=== PATIENT | male | born 1935 | race Caucasian/White ===

== ENCOUNTER 2017-12-13 22:10 | Inpatient (IN) ==
[2017-12-13] MEDS ORDERED: MethylPREDNISolone Sod Succinate Inj 40 MG/ML Vial IV.PUSH ONE (22:38)
--- NOTE | 2017-12-13 22:44 | ED ---
HPI General Chief complaint: Respiratory Symptoms Stated complaint: Sob x1wk Time Seen by Provider: 12/13/17 22:31 Source: patient and family History of Present Illness HPI narrative: 82yo M with PMH of CHF, COPD here with c/o worsening sob today. Said he had fever here. Has midsternal chest pain that is sharp but mainly sob. Denies any n/v, abdominal pain, focal weakness or numbness. Said his bilateral leg swelling is actually better. Pt was admitted to [facility] 3 weeks ago and found to have mild CHF. Said he also had history of blood clot in his lung. Related Data Home Medications Medication Instructions Recorded Confirmed allopurinol 300 mg PO DAILY 12/08/17 12/13/17 amlodipine 5 mg PO DAILY 12/08/17 12/13/17 furosemide 40 mg PO DAILY 12/08/17 12/13/17 gabapentin 300 mg PO DAILY 12/08/17 12/13/17 hydrocodone-acetaminophen 1 tab PO Q4-6H PRN 12/08/17 12/13/17 meloxicam 15 mg PO DAILY 12/08/17 12/13/17 omeprazole 40 mg PO DAILY 12/08/17 12/13/17 oxybutynin chloride 5 mg PO BID PRN 12/08/17 12/13/17 trazodone 100 mg PO DAILY 12/08/17 12/13/17 triamterene-hydrochlorothiazid 1 cap PO DAILY 12/08/17 12/13/17 Allergies Allergy/AdvReac Type Severity Reaction Status Date / Time No Known Allergies Allergy Verified 12/07/17 22:28 Review of Systems ROS Unobtainable All other systems reviewed negative except as stated in HPI [facility] Social History Social History Substance History: No History of Abuse Second Hand Smoke Exposure: No Smoking Status: Never smoker How Often Do You Have a Drink Containing Alcohol: Never Immunization History Tetanus Immunization Year if Known: 2017 Exam Narrative Exam Narrative: GENERAL: 82yo M in moderate distress. SKIN: Focused skin assessment warm/dry. HEAD: Atraumatic. Normocephalic. EYES: Pupils equal and round. No scleral icterus. No injection or drainage. ENT: No nasal bleeding or discharge. Mucous membranes pink and moist. NECK: Trachea midline. No JVD. CARDIOVASCULAR: Regular rate and rhythm. No murmur appreciated. RESPIRATORY: + accessory muscle use. Decreased breath sounds bilateral lower lungs. No wheezing. GASTROINTESTINAL: Abdomen soft, non-tender, nondistended. MUSCULOSKELETAL: No obvious deformities. No clubbing. No cyanosis. +Bilateral lower extremity edema. NEUROLOGICAL: Awake and alert. No obvious cranial nerve deficits. Motor grossly within normal limits. Normal speech. PSYCHIATRIC: Appropriate mood and affect; insight and judgment normal. Course Initial Documented Vital Signs Temperature 102.4 F H 12/13/17 22:19 Pulse Rate 94 H 12/13/17 22:19 Respiratory Rate 20 12/13/17 22:19 Blood Pressure 147/69 H 12/13/17 22:19 Pulse Oximetry 94 L 12/13/17 22:19 Last Documented Vital Signs Temperature 99.5 F 12/14/17 00:37 Pulse Rate 113 H 12/14/17 02:38 Respiratory Rate 18 12/14/17 01:50 Blood Pressure 147/83 H 12/14/17 02:38 Pulse Oximetry 95 12/14/17 01:50 Critical Care Time Critical Care Time: Yes Total Critical Care Time: 45 Attestation: Aggregate critical care time was 45 minutes. Time to perform other separately billable procedures was not included in the critical care time. My time did not include minutes spent treating any other patients simultaneously or on activities that did not directly contribute to the patient's treatment. The services I provided to this patient were to treat and/or prevent clinically significant deterioration that could result in: cardiovascular collapse or . I provided critical care services requiring my management, as noted below: Chart data review, documentation time, medication orders and management, vital sign assessments/reviewing monitor data, ordering and reviewing lab tests, ordering and interpreting/reviewing x-rays and diagnostic studies, care of the patient and discussion of the patient with the admitting physicians. Medical Decision Making MDM Narrative Medical decision making narrative: 82yo M with fever and sob. Pt's temperature was elevated at 102.4F and tachycardic at 94bpm. O2 sat is 94% on RA. Pt has decreased breath sounds in bilateral lower lungs. No wheezing but has history of COPD so given empiric steroid and duonebs. Labs reviewed, leukocytosis at 13 ,000. 91.3% neutrophil. Troponin negative. Total bilirubin elevated at 1.9, likely dehydration. Lactic acid normal at 1.4. CXR showed moderate severity bilateral lower lung zone parenchymal opacity indicating atelectasis, consolidation or pulmonary edema. In the case of fever, leukocytosis, will cover with antibitoics. Discussed with Dr. Madera and accepted to her service. Differential Diagnosis Differential Diagnosis: Pneumonia vs. CHF exacerbation vs. COPD exacerbation vs. PE Lab Data Result diagrams: 12/13/17 22:55 12/13/17 22:55 Lab Results 12/13/17 12/13/17 12/13/17 Range/Units 22:55 22:55 22:55 CBC w Diff Auto diff final WBC 13.0 H (4.0-11.0) th/mm3 RBC 5.03 (4.50-5.90) mil/mm3 Hgb 14.6 (13.0-17.0) gm/dL Hct 45.8 (39.0-51.0) % MCV 91.1 (80.0-100.0) fL MCH 29.0 (27.0-34.0) pg MCHC 31.8 L (32.0-36.0) % RDW 13.5 (11.6-17.2) % Plt Count 165 (150-450) th/mm3 MPV 8.0 (7.0-11.0) fL Neut % (Auto) 91.3 H (16.0-70.0) % Lymph % (Auto) 3.6 L (9.0-44.0) % [place] % (Auto) 4.0 (0.0-8.0) % Eos % (Auto) 0.1 (0.0-4.0) % Baso % (Auto) 1.0 (0.0-2.0) % Neut # (Auto) 11.9 H (1.8-7.7) th/mm3 Lymph # (Auto) 0.5 L (1.0-4.8) th/mm3 [place] # (Auto) 0.5 (0.0-0.9) th/mm3 Eos # (Auto) 0.0 (0.0-0.4) th/mm3 Baso # (Auto) 0.1 (0.0-0.2) th/mm3 WBC Differential . Differential Comment . PT 10.4 (9.8-11.6) sec INR 1.0 Ratio APTT 24.2 L (24.3-30.1) sec Sodium 138 (136-145) meq/L Potassium 3.6 (3.5-5.1) meq/L Chloride 103 (98-107) meq/L Carbon Dioxide 28.0 (21.0-32.0) meq/L Anion Gap 7 (5-15) meq/L BUN 19 H (7-18) mg/dL Creatinine 0.99 (0.60-1.30) mg/dL Estimated GFR 72 L (>89) mL/min Random Glucose 124 H (74-106) mg/dL Lactic Acid (0.4-2.0) mmol/L Calcium 9.9 (8.5-10.1) mg/dL Magnesium 1.6 (1.5-2.5) mg/dL Total Bilirubin 1.9 H (0.2-1.0) mg/dL AST 21 (15-37) U/L ALT 24 (12-78) U/L Alkaline Phosphatase 111 (45-117) U/L Troponin I Less than 0.02 L (0.02-0.05) ng/mL B-Natriuretic Peptide (0-100) pg/mL Total Protein 7.3 (6.4-8.2) g/dL Albumin 3.7 (3.4-5.0) g/dL 12/13/17 12/13/17 Range/Units 22:55 22:55 CBC w Diff WBC (4.0-11.0) th/mm3 RBC (4.50-5.90) mil/mm3 Hgb (13.0-17.0) gm/dL Hct (39.0-51.0) % MCV (80.0-100.0) fL MCH (27.0-34.0) pg MCHC (32.0-36.0) % RDW (11.6-17.2) % Plt Count (150-450) th/mm3 MPV (7.0-11.0) fL Neut % (Auto) (16.0-70.0) % Lymph % (Auto) (9.0-44.0) % [place] % (Auto) (0.0-8.0) % Eos % (Auto) (0.0-4.0) % Baso % (Auto) (0.0-2.0) % Neut # (Auto) (1.8-7.7) th/mm3 Lymph # (Auto) (1.0-4.8) th/mm3 [place] # (Auto) (0.0-0.9) th/mm3 Eos # (Auto) (0.0-0.4) th/mm3 Baso # (Auto) (0.0-0.2) th/mm3 WBC Differential Differential Comment PT (9.8-11.6) sec INR Ratio APTT (24.3-30.1) sec Sodium (136-145) meq/L Potassium (3.5-5.1) meq/L Chloride (98-107) meq/L Carbon Dioxide (21.0-32.0) meq/L Anion Gap (5-15) meq/L BUN (7-18) mg/dL Creatinine (0.60-1.30) mg/dL Estimated GFR (>89) mL/min Random Glucose (74-106) mg/dL Lactic Acid 1.4 (0.4-2.0) mmol/L Calcium (8.5-10.1) mg/dL Magnesium (1.5-2.5) mg/dL Total Bilirubin (0.2-1.0) mg/dL AST (15-37) U/L ALT (12-78) U/L Alkaline Phosphatase (45-117) U/L Troponin I (0.02-0.05) ng/mL B-Natriuretic Peptide 35 (0-100) pg/mL Total Protein (6.4-8.2) g/dL Albumin (3.4-5.0) g/dL Imaging Data Radiologist's impression: ITS Impressions Chest X-Ray 12/13/17 22:39 CONCLUSION: Moderate severity bilateral lower lung zone parenchymal opacity indicating atelectasis, consolidation, or pulmonary edema. Small left pleural effusion. ECG Data EKG Prior to Arrival: No Attestation: I personally reviewed and interpreted this ECG as follows: Interpretation: NSR 98bpm. No significant ST elevation or depression. Discharge Plan Discharge Disposition Patient Disposition: 30 Still Patient Discharge Details Discharge Problem: Pneumonia Physicians Team ED Provider: Sammie Montana Primary Care Provider: Joe Palafox Attending Provider: Kellen Madera Discharge Interventions Interventions: Vital Signs Last Done: 12/14/17 00:37 Status ED Status: Admitted Patient
[2017-12-13 23:25] LABS: Baso # (Auto) 0.1 th/mm3 (0.0-0.2); Eos % (Auto) 0.1 % (0.0-4.0); Hematocrit 45.8 % (39.0-51.0); Hemoglobin 14.6 gm/dL (13.0-17.0); Lymph # (Auto) 0.5 th/mm3 (1.0-4.8); Lymph % (Auto) 3.6 % (9.0-44.0); Mean Corpuscular HGB Conc 31.8 % (32.0-36.0); Mean Corpuscular Volume 91.1 fL (80.0-100.0); Mono # (Auto) 0.5 th/mm3 (0.0-0.9); Neut # (Auto) 11.9 th/mm3 (1.8-7.7); Neut % (Auto) 91.3 % (16.0-70.0); Platelet Count 165 th/mm3 (150-450); Red Blood Count 5.03 mil/mm3 (4.50-5.90); Red Cell Distribution Width 13.5 % (11.6-17.2)
[2017-12-13] MEDS ORDERED: Acetaminophen 325 MG Tablet PO ONE (23:29)
[2017-12-13 23:36] LABS: Chloride 103 meq/L (98-107); Potassium 3.6 meq/L (3.5-5.1); Sodium 138 meq/L (136-145)
[2017-12-13 23:39] LABS: Activated Partial Thrombo Time 24.2 sec (24.3-30.1); Albumin 3.7 g/dL (3.4-5.0); Anion Gap 7 meq/L (5-15); Calcium 9.9 mg/dL (8.5-10.1); Prothrombin Time 10.4 sec (9.8-11.6)
[2017-12-13 23:40] LABS: Blood Urea Nitrogen 19 mg/dL (7-18); Glucose,Random 124 mg/dL (74-106); Magnesium 1.6 mg/dL (1.5-2.5)
[2017-12-13 23:42] LABS: Alanine Aminotransferase 24 U/L (12-78)
[2017-12-13 23:43] LABS: Aspartate Aminotransferase 21 U/L (15-37); Glomerular Filtration Rate 72 mL/min (>89)
[2017-12-13 23:44] LABS: Total Protein 7.3 g/dL (6.4-8.2)
[2017-12-13 23:45] LABS: Alkaline Phosphatase 111 U/L (45-117)
--- NOTE | 2017-12-13 23:59 | XR ---
EXAM DATE: 12/13/2017 11:22 PM EDT AGE/SEX: 82 years / Male INDICATIONS: Dyspnea. CLINICAL DATA: This is the patient's initial encounter. Patient reports that signs and symptoms have been present for 1 day and indicates a pain score of 7/10. MEDICAL/SURGICAL HISTORY: Congestive heart failure. Chronic obstructive pulmonary disease. Hy pertension. None. COMPARISON: No prior exams available for comparison. FINDINGS: Single AP view of the chest. Moderate severity patchy pulmonary opacity at the lung bases bilaterally . Small left pleural effusion. No evidence of pneumothorax. Cardiomediastinal silhouette within chapo l limits. Prominent glenohumeral joint arthrosis on the right. CONCLUSION: Moderate severity bilateral lower lung zone parenchymal opacity indicating atelectasis, consolidation , or pulmonary edema. Small left pleural effusion. Electronically signed by: Tai Millan MD 12/13/2017 11:58 PM EDT
[2017-12-14] MEDS ORDERED: Azithromycin 250 MG Tablet PO ONE (00:40)
[2017-12-14] MEDS ORDERED: Vancomycin Inj 1,000 MG in Sodium Chlor 0.9% Inj 250 ML IV.SIG SCH (00:59)
[2017-12-14] MEDS ORDERED: Sod Chloride 0.9% Inj 1,000 ML IV.CONT SCH (01:00)
[2017-12-14] MEDS ORDERED: Vancomycin Consult Pharmacy 1 EACH OTHER SCH (01:00)
[2017-12-14] MEDS ORDERED: Acetaminophen 325 MG Tablet PO PRN (01:00)
[2017-12-14] MEDS ORDERED: Bisacodyl 10 MG Supp RECTAL PRN (01:00)
[2017-12-14] MEDS: Heparin - SQ 10,000 UNITS/ML Vial SQ SCH ×3 (01:44→17:55)
[2017-12-14] MEDS: Piperacil/Tazo 4.5 GM Premix 4.5 GM/100 ML BAG IV.SIG SCH ×4 (03:30→20:49)
[2017-12-14] MEDS: Furosemide 40 MG Tablet PO SCH (09:40)
[2017-12-14] MEDS: Senna/Docusate Sodium 8.6/50 MG Tablet PO SCH ×2 (09:40→20:50)
[2017-12-14] MEDS: Gabapentin 300 MG Capsule PO SCH (09:40)
[2017-12-14] MEDS: amLODIPine 5 MG Tablet PO SCH (09:40)
--- NOTE | 2017-12-14 09:52 | P.HP ---
History of Present Illness Primary Care Physician: Joe Palafox Chief Complaint: General malaise History of Present Illness: 82-year-old male with known history of hypertension, history myocardial infarction, history of pulmonary emboli, recent hospitalization at [facility] who presented to the hospital because of general malaise and fever. Patient is alert and orientated to person, place, events. However does have some memory problems when he comes to date, time. It was indicated that patient was recently admitted to [facility] and was treated. Patient does not know why he was in the hospital. Patient was brought to [place] ER by his and was found to have 102.4 fever. GERD augmentation indicates that the patient presented with chest pain. Workup was performed and indicated signs of sepsis with fever, leukocytosis, pneumonia by chest x-ray. Patient was given empiric antibiotics include vancomycin and Zosyn and requested admission the hospital for further evaluation and management. Upon evaluating patient he states that he is doing quite well. He only had some general malaise. Patient states that he may have had some chest discomfort in the middle part of his chest without any radiation to neck, back, shoulder, arm. He cannot tell me what type of pain it was. There was not any lightheadedness, dizziness, diaphoresis. Mild cough without any production. Denies any chills, abdominal pain, nausea, vomiting, diarrhea. - Diagnosis (1) Sepsis (2) Pneumonia (3) Chest pain Inpatient Certification: I certify that the inpatient services were ordered in accordance with Medicare regulations governing the order. This includes certification that hospital inpatient services are reasonable and necessary and in the case of services not specified as inpatient-only under 42 CFR 419.22(n), that they are appropriately provided as inpatient services in accordance to with the 2-midnight benchmark under 43 CFR 412.3(e) Estimated Total Length of Stay (Days): 3 Plans for Post Hospital Care: Not yet determined Review of Systems All other systems reviewed negative except as stated in HPI Constitutional: Reports fatigue, Reports lack of energy, Reports malaise Cardiovascular: Reports chest pain Respiratory: Reports cough PMFSH - History History Provided By: Patient - Medical History Medical History: Medical History (Last Updated 12/14/17 @ 09:23 by MANJINDER Ricks) Benign prostatic hyperplasia Gastroesophageal reflux History of pulmonary embolism Osteoporosis Peripheral neuropathy Gout Heartburn Hypertension Myocardial infarction Neuropathy - Surgical History Surgical History: Surgical History (Last Updated 12/14/17 @ 09:22 by MANJINDER Ricks) History of laminectomy History of phacoemulsification of cataract of both eyes with intraocular lens implantation History of transurethral resection of prostate Status post cholecystectomy History of surgical removal of pilonidal cyst - Tobacco History Second Hand Smoke Exposure: No Tobacco Use In Past 30 Days: No Smoking Status: Never smoker - Alcohol History How Often Do You Have a Drink Containing Alcohol: Never - Substance Use History Substance History: No History of Abuse - Immunization History Tetanus Immunization: Unsure Tetanus Immunization Year if Known: 2017 Hx Influenza Vaccine This Season: Yes Medications and Allergies Active Medications: Active Medications Acetaminophen (Tylenol) 650 mg PO Q4H PRN PRN Reason: Temp > 100.4 Al Hydroxide/Mg Hydroxide (Milk Of Jonelle Licampos) 30 ml PO Q12H PRN PRN Reason: Mild Constipation Albuterol (Duoneb Neb (Prn)) 1 ampul NEB Q15M PRN PRN Reason: DYSPNEA Last Admin: 12/14/17 04:46 Dose: 1 ampul Albuterol (Duoneb Neb (Prn)) 1 ampul NEB Q4HR NEB PRN PRN Reason: SOB/Wheezing Allopurinol (Zyloprim) 300 mg PO DAILY [facility] Amlodipine Besylate (Norvasc) 5 mg PO DAILY [facility] Bisacodyl (Dulcolax Supp) 10 mg RECTAL DAILY PRN PRN Reason: SEVERE CONSITIPATION Furosemide (Lasix) 40 mg PO DAILY [facility] Gabapentin (Neurontin) 300 mg PO DAILY [facility] Heparin Sodium (Porcine) (Heparin Inj) 5,000 units SQ Q8H [facility] Last Admin: 12/14/17 01:44 Dose: 5,000 units Sodium Chloride (Ns Inj) 1,000 mls @ 100 mls/hr IV.CONT .Q10H [facility] Last Admin: 12/14/17 01:44 Dose: 100 mls/hr Pharmacy Profile Note (Vancomycin Consult Pharmacy) 0 mls @ 0 mls/hr OTHER UNSCH [facility] Vancomycin HCl 1,000 mg/ (Sodium Chloride) 250 mls @ 250 mls/hr IV.SIG Q12H [facility] Last Infusion: 12/14/17 02:44 Dose: Infused Piperacillin/Tazobactam/Dextrose (Zosyn 4.5 Gm Premix) 4.5 gm in 100 mls @ 200 mls/hr IV.SIG Q6H [facility] Last Infusion: 12/14/17 09:20 Dose: Infused Lactulose (Lactulose Liq) 30 ml PO DAILY PRN PRN Reason: SEVERE CONSITIPATION Non-Formulary Medication (Omeprazole [Omeprazole]) 40 mg PO DAILY [facility] Ondansetron HCl (Zofran Inj) 4 mg IV.PUSH Q6H PRN PRN Reason: NAUSEA OR VOMITING Senna/Docusate Sodium (Zo-Colace) 1 tab PO BID [facility] Sennosides (Senokot) 17.2 mg PO Q12H PRN PRN Reason: Moderate Constipation Trazodone HCl (Desyrel) 100 mg PO DAILY [facility] Allergies Allergy/AdvReac Type Severity Reaction Status Date / Time No Known Allergies Allergy Verified 12/07/17 22:28 Home Medications Medication Instructions Recorded Confirmed Type allopurinol 300 mg PO DAILY 12/08/17 12/13/17 History amlodipine 5 mg PO DAILY 12/08/17 12/13/17 History furosemide 40 mg PO DAILY 12/08/17 12/13/17 History gabapentin 300 mg PO DAILY 12/08/17 12/13/17 History hydrocodone-acetaminophen 1 tab PO Q4-6H PRN 12/08/17 12/13/17 History meloxicam 15 mg PO DAILY 12/08/17 12/13/17 History omeprazole 40 mg PO DAILY 12/08/17 12/13/17 History oxybutynin chloride 5 mg PO BID PRN 12/08/17 12/13/17 History trazodone 100 mg PO DAILY 12/08/17 12/13/17 History triamterene-hydrochlorothiazid 1 cap PO DAILY 12/08/17 12/13/17 History Exam Vital signs: Vital Signs 12/13/17 22:19 12/13/17 23:01 12/13/17 23:16 Temperature 102.4 F H Pulse Rate 94 H 102 H Respiratory Rate 20 20 Blood Pressure 147/69 H Pulse Oximetry 94 L 98 12/14/17 00:05 12/14/17 00:37 12/14/17 01:50 Temperature 99.5 F Pulse Rate 90 Respiratory Rate 18 Blood Pressure 124/68 Pulse Oximetry 95 95 12/14/17 02:38 12/14/17 04:48 12/14/17 04:51 Temperature Pulse Rate 113 H 85 Respiratory Rate 20 Blood Pressure 147/83 H Pulse Oximetry 96 12/14/17 05:59 12/14/17 07:23 Temperature 98 F Pulse Rate 96 H 82 Respiratory Rate 18 Blood Pressure 133/77 130/77 Pulse Oximetry 97 Intake & Output 12/13/17 12/14/17 12/14/17 18:59 06:59 18:59 Intake Total 350 / 350 100 / 100 Balance 350 / 350 100 / 100 Weight 94 kg Intake: IV 350 / 350 100 / 100 Zosyn 4.5 GM Premix 4.5 gm In 100 / 100 100 / 100 100 ml @ 200 mls/hr IV.SIG Q6H [facility] Rx#:[id number] Vancomycin Inj 1,000 MG In NS 250 / 250 Inj 250 ML @ 250 mls/hr IV.SIG Q12H [facility] Rx#:[id number] Narrative: GENERAL: Well-developed, well-nourished, in no acute distress. alert and orientated HEENT: Head is normocephalic without any lesions or masses noted. Facial features are symmetric. Eyes: Pupils equal round reactive to light. Extraocular muscles are intact. Conjunctivae were clear. Oropharyngeal: Pharynx without any erythema edema. Tongue is midline without deviation. Buccal mucosa is moist without any masses or lesions NECK: Supple without any masses. Trachea midline no deviation. No JVD, no bruits are appreciated CARDIAC: Regular rhythm, regular rate. S1/S2 are heard. No murmurs gallops or rubs. LUNGS: Clear to auscultation bilaterally. No wheeze, rhonchi or rales. No use of accessory muscles on inspiration or expiration. ABDOMEN: Soft, nontender. Nondistended. Bowel sounds heard in all 4 quadrants. No organomegaly or masses. Negative rebound, negative guarding EXTREMITIES: No edema, pulses are equal bilaterally. No cyanosis or clubbing NEUROLOGY: Mood and affect appear appropriate. Cranial nerves II through XII grossly intact. Muscle strength 5/5 in upper and lower extremities bilaterally. Deep tendon reflexes are 2+ in upper and lower extremities bilaterally. Results - Labs CBC & Chem 7: 12/13/17 22:55 12/13/17 22:55 Labs: Laboratory Results - last 24 hr 12/13/17 12/13/17 12/13/17 22:55 22:55 22:55 CBC w Diff Auto diff final WBC 13.0 H RBC 5.03 Hgb 14.6 Hct 45.8 MCV 91.1 MCH 29.0 MCHC 31.8 L RDW 13.5 Plt Count 165 MPV 8.0 Neut % (Auto) 91.3 H Lymph % (Auto) 3.6 L [place] % (Auto) 4.0 Eos % (Auto) 0.1 Baso % (Auto) 1.0 Neut # (Auto) 11.9 H Lymph # (Auto) 0.5 L [place] # (Auto) 0.5 Eos # (Auto) 0.0 Baso # (Auto) 0.1 WBC Differential . Differential Comment . PT 10.4 INR 1.0 APTT 24.2 L Sodium 138 Potassium 3.6 Chloride 103 Carbon Dioxide 28.0 Anion Gap 7 BUN 19 H Creatinine 0.99 Estimated GFR 72 L Random Glucose 124 H Lactic Acid Calcium 9.9 Magnesium 1.6 Total Bilirubin 1.9 H AST 21 ALT 24 Alkaline Phosphatase 111 Troponin I Less than 0.02 L B-Natriuretic Peptide Total Protein 7.3 Albumin 3.7 12/13/17 12/13/17 22:55 22:55 CBC w Diff WBC RBC Hgb Hct MCV MCH MCHC RDW Plt Count MPV Neut % (Auto) Lymph % (Auto) [place] % (Auto) Eos % (Auto) Baso % (Auto) Neut # (Auto) Lymph # (Auto) [place] # (Auto) Eos # (Auto) Baso # (Auto) WBC Differential Differential Comment PT INR APTT Sodium Potassium Chloride Carbon Dioxide Anion Gap BUN Creatinine Estimated GFR Random Glucose Lactic Acid 1.4 Calcium Magnesium Total Bilirubin AST ALT Alkaline Phosphatase Troponin I B-Natriuretic Peptide 35 Total Protein Albumin - Imaging Impressions Chest X-Ray 12/13/17 22:39 CONCLUSION: Moderate severity bilateral lower lung zone parenchymal opacity indicating atelectasis, consolidation, or pulmonary edema. Small left pleural effusion. Caprini VTE Risk Assessment Caprini VTE Risk Assessment: Moderate/High Risk (score >= 2) Caprini Risk Assessment Model: Point Value = 1 Point Value = 2 Point Value = 3 Point Value = 5 Age 41-60 Minor surgery BMI > 25 kg/m2 Swollen legs Varicose veins or History of unexplained or recurrent spontaneous Oral contraceptives or hormone replacement Sepsis (< 1 month) Serious lung disease, including pneumonia (< 1 month) Abnormal pulmonary function Acute myocardial infarction Congestive heart failure (< 1 month) History of inflammatory bowel disease Medical patient at bed rest Age 61-74 Arthroscopic surgery Major open surgery (> 45 min) Laparoscopic surgery (> 45 min) Malignancy Confined to bed (> 72 hours) Immobilizing plaster cast Central venous access Age >= 75 History of VTE Family history of VTE Factor V Leiden Prothrombin [id number] Lupus anticoagulant Anticardiolipin antibodies Elevated serum homocysteine Heparin-induced thrombocytopenia Other congenital or acquired thrombophilia Stroke (< 1 month) Elective arthroplasty Hip, pelvis, or leg fracture Acute spinal cord injury (< 1 month) Prophylaxis Regimen: Total Risk Factor Score Risk Level Prophylaxis Regimen 0-1 Low Early ambulation 2 Moderate Order ONE of the following: *Sequential Compression Device (SCD) *Heparin 5000 units SQ BID 3-4 Higher Order ONE of the following medications: *Heparin 5000 units SQ TID *Enoxaparin/Lovenox 40 mg SQ daily (WT < 150 kg, CrCl > 30 mL/min) *Enoxaparin/Lovenox 30 mg SQ daily (WT < 150 kg, CrCl > 10-29 mL/min) *Enoxaparin/Lovenox 30 mg SQ BID (WT < 150 kg, CrCl > 30 mL/min) AND/OR *Sequential Compression Device (SCD) 5 or more Highest Order ONE of the following medications: *Heparin 5000 units SQ TID (Preferred with Epidurals) *Enoxaparin/Lovenox 40 mg SQ daily (WT < 150 kg, CrCl > 30 mL/min) *Enoxaparin/Lovenox 30 mg SQ daily (WT < 150 kg, CrCl > 10-29 mL/min) *Enoxaparin/Lovenox 30 mg SQ BID (WT < 150 kg, CrCl > 30 mL/min) AND *Sequential Compression Device (SCD) Assessment and Plan - Assessment (1) Sepsis Code(s): A41.9 - Sepsis, unspecified organism Status: Acute Plan: -Patient met criteria on admission with febrile illness, leukocytosis, x-ray with findings of pneumonia and consolidations -Patient recent hospitalization, could represent hospital-acquired pneumonia -Continue vancomycin and Zosyn -Continue monitor blood cultures -Obtain urinalysis -Obtain sputum culture (2) Pneumonia Code(s): J18.9 - Pneumonia, unspecified organism Status: Acute Plan: -Patient recently hospitalized at [facility], likely hospital-acquired pneumonia -Continue on antibiotics for hospital-acquired pneumonia -Obtain sputum culture -Duo nebs as needed (3) Chest pain Code(s): R07.9 - Chest pain, unspecified Status: Acute Plan: -Patient does have increased risk factors secondary to age, hypertension, history of myocardial infarction -Continue to rule the patient out for acute coronary event with serial cardiac enzymes and serial EKGs -Continue monitor telemetry -Start aspirin, nitroglycerin as needed for chest pain -Continue oxygen -Patient does have history of pulmonary emboli, patient is not on any anticoagulation. Will need to obtain d-dimer -If d-dimer positive we will need to pursue pulmonary angiogram -BNP was normal - Plan DVT prevention -Subcutaneous heparin (2) Pneumonia Qualifiers: Pneumonia type: due to unspecified organism Laterality: bilateral
[2017-12-14 09:56] LABS: Baso % (Auto) 0.1 % (0.0-2.0); Eos % (Auto) 0.1 % (0.0-4.0); Hematocrit 43.5 % (39.0-51.0); Hemoglobin 14.1 gm/dL (13.0-17.0); Lymph # (Auto) 0.3 th/mm3 (1.0-4.8); Lymph % (Auto) 2.9 % (9.0-44.0); Mean Corpuscular HGB Conc 32.3 % (32.0-36.0); Mean Corpuscular Hemoglobin 29.6 pg (27.0-34.0); Mean Corpuscular Volume 91.5 fL (80.0-100.0); Mean Platelet Volume 7.6 fL (7.0-11.0); Mono # (Auto) 0.3 th/mm3 (0.0-0.9); Mono % (Auto) 2.2 % (0.0-8.0); Neut # (Auto) 11.1 th/mm3 (1.8-7.7); Neut % (Auto) 94.7 % (16.0-70.0); Platelet Count 172 th/mm3 (150-450); Red Blood Count 4.75 mil/mm3 (4.50-5.90); Red Cell Distribution Width 13.6 % (11.6-17.2); White Blood Count 11.7 th/mm3 (4.0-11.0)
[2017-12-14 10:32] LABS: Troponin I 0.02 ng/mL (0.02-0.05)
[2017-12-14] MEDS: traZODone 100 MG Tablet PO SCH (10:33)
[2017-12-14] MEDS: Allopurinol 300 MG Tablet PO SCH (10:33)
[2017-12-14] MEDS: Aspirin 325 MG Tablet PO SCH (10:33)
--- NOTE | 2017-12-14 11:20 | ECG ---
Date Performed: 12/13/2017 Time Performed: 22:47:35 PTAGE: 82 years EKG: Sinus rhythm WITH OCCASIONAL VENTRICULAR PREMATURE COMPLEXES WITH OCCASIONAL SUPRAVENTRICULAR PREMATURE COMPLEXES POSSIBLE INFERIOR MYOCARDIAL INFARCTION BORDERLINE ECG PREVIOUS TRACING : 11/27/2015 15.34 No significant change from previous tracing noted. DOCTOR: Marty Borjas Interpretating Date/Time 12/14/2017 11:19:55
--- NOTE | 2017-12-14 11:21 | ECG ---
Date Performed: 12/14/2017 Time Performed: 10:08:47 PTAGE: 82 years EKG: Sinus rhythm WITH FREQUENT SUPRAVENTRICULAR PREMATURE COMPLEXES ABNORMAL RHYTHM ECG PREVIOUS TRACING : 12/13/2017 22.47 No significant change from previous tracing noted. DOCTOR: Marty Borjas Interpretating Date/Time 12/14/2017 11:20:57
[2017-12-14] MEDS: Vancomycin Inj 1,250 MG in Sodium Chlor 0.9% Inj 250 ML IV.SIG SCH (12:15)
[2017-12-14 13:11] LABS: Bilirubin,Urine Negative (Negative); Clarity,Urine Clear (Clear); Color,Urine Yellow (Yellw/Straw); Glucose,Urine (UA) Negative (Negative); Leukocyte Esterase,Urine Negative (Negative); Nitrite,Urine Negative (Negative); Specific Gravity,Urine Less/Equal 1.005 (1.002-1.035); Urobilinogen,Urine 0.2 mg/dL (Less than 2)
[2017-12-14 13:14] LABS: Squamous Epithelial Cell,Urine 0-5 /hpf (0-5)
--- NOTE | 2017-12-14 13:33 | CT ---
EXAM DATE: 12/14/2017 1:22 PM EDT AGE/SEX: 82 years / Male INDICATIONS: Short of breath. History of pulmonary embolism. CLINICAL DATA: This is the patient's initial encounter. Patient reports that signs and symptoms have been present for 1 day and indicates a pain score of 0/10. MEDICAL/SURGICAL HISTORY: Gastroesophageal reflux disease. Hypertension. Pulmonary embolism. Myoca rdial infarct. Cholecystectomy. Laminectomy. RADIATION DOSE: 21.58 CTDI (mGy) COMPARISON: [facility], CT PULMONARY ANGIOGRAM, 11/27/2015. . TECHNIQUE: Volumetric scanning was performed using a multi-row detector CT scanner during bolus infu eli of 65 ml Omnipaque 350 (iohexol) nonionic water-soluble contrast as a single exam dose. The nishi a was post processed with a variety of visualization algorithms including full volume maximum intensi ty projection and sliding thin slab reformation. Using automated exposure control and adjustment of t he mA and/or kV according to patient size, radiation dose was kept as low as reasonably achievable to obtain optimal diagnostic quality images. DICOM format image data is available electronically for r eview and comparison. FINDINGS: Pulmonary Arteries: No filling defects are seen in the pulmonary arteries out to the subsegmental ve ssels. The left and right pulmonary arteries are normal in diameter. Lung: Bibasilar consolidation with air bronchograms. Effusion: None. Mediastinum: No evidence of mediastinal or hilar adenopathy. Coronary artery calcifications. Other: The axilla is unremarkable. Degenerative changes lumbar spine and both shoulders, greater on the right. CONCLUSION: 1. No evidence for pulmonary embolism. 2. Bibasilar consolidation 3. Coronary artery calcifications. Electronically signed by: Alfonzo Sher MD 12/14/2017 1:32 PM EDT
[2017-12-14 16:56] LABS: Troponin I 0.02 ng/mL (0.02-0.05)
[2017-12-15] MEDS: Vancomycin Inj 1,250 MG in Sodium Chlor 0.9% Inj 250 ML IV.SIG SCH (00:42)
[2017-12-15] MEDS: Heparin - SQ 10,000 UNITS/ML Vial SQ SCH ×2 (00:43→09:13)
[2017-12-15] MEDS: Piperacil/Tazo 4.5 GM Premix 4.5 GM/100 ML BAG IV.SIG SCH ×2 (00:43→10:01)
[2017-12-15 05:18] LABS: Baso % (Auto) 0.2 % (0.0-2.0); Eos % (Auto) 0.5 % (0.0-4.0); Hematocrit 39.5 % (39.0-51.0); Hemoglobin 13.4 gm/dL (13.0-17.0); Lymph # (Auto) 1.3 th/mm3 (1.0-4.8); Mean Corpuscular Hemoglobin 30.6 pg (27.0-34.0); Mono # (Auto) 0.6 th/mm3 (0.0-0.9); Mono % (Auto) 8.6 % (0.0-8.0); Neut # (Auto) 4.6 th/mm3 (1.8-7.7); Neut % (Auto) 70.7 % (16.0-70.0); Platelet Count 161 th/mm3 (150-450); Red Blood Count 4.39 mil/mm3 (4.50-5.90); Red Cell Distribution Width 14.3 % (11.6-17.2); White Blood Count 6.5 th/mm3 (4.0-11.0)
[2017-12-15 05:24] LABS: Potassium 3.4 meq/L (3.5-5.1)
[2017-12-15 05:28] LABS: Calcium 9.5 mg/dL (8.5-10.1); Carbon Dioxide 27.3 meq/L (21.0-32.0)
[2017-12-15] MEDS: Senna/Docusate Sodium 8.6/50 MG Tablet PO SCH (09:13)
[2017-12-15] MEDS: Aspirin 325 MG Tablet PO SCH (09:14)
[2017-12-15] MEDS: amLODIPine 5 MG Tablet PO SCH (09:14)
[2017-12-15] MEDS: Gabapentin 300 MG Capsule PO SCH (09:14)
[2017-12-15] MEDS: traZODone 100 MG Tablet PO SCH (09:14)
[2017-12-15] MEDS: Furosemide 40 MG Tablet PO SCH (09:14)
[2017-12-15] MEDS: Allopurinol 300 MG Tablet PO SCH (09:14)
--- NOTE | 2017-12-15 09:47 | ECG ---
Date Performed: 12/14/2017 Time Performed: 16:04:45 PTAGE: 82 years EKG: Sinus rhythm WITH FREQUENT SUPRAVENTRICULAR PREMATURE COMPLEXES ABNORMAL RHYTHM ECG Since the PREVIOUS TRACING , no significant change noted PREVIOUS TRACIN12/14/2017 10.08 DOCTOR: Bennie Pak Interpretating Date/Time 12/15/2017 09:45:10
--- NOTE | 2017-12-15 10:39 | P.DS ---
Date of admission: 12/14/17 01:31 Primary care physician: Joe Palafox Attending physician on discharge: Belkys Richey Anticipated date of discharge: 12/15/17 Brief History from admission: 82-year-old male with known history of hypertension, history myocardial infarction, history of pulmonary emboli, recent hospitalization at [facility] who presented to the hospital because of general malaise and fever. Patient is alert and orientated to person, place, events. However does have some memory problems when he comes to date, time. It was indicated that patient was recently admitted to [facility] and was treated. Patient does not know why he was in the hospital. Patient was brought to [facility] by his and was found to have 102.4 fever. GERD augmentation indicates that the patient presented with chest pain. Workup was performed and indicated signs of sepsis with fever, leukocytosis, pneumonia by chest x-ray. Patient was given empiric antibiotics include vancomycin and Zosyn and requested admission the hospital for further evaluation and management. Upon evaluating patient he states that he is doing quite well. He only had some general malaise. Patient states that he may have had some chest discomfort in the middle part of his chest without any radiation to neck, back, shoulder, arm. He cannot tell me what type of pain it was. There was not any lightheadedness, dizziness, diaphoresis. Mild cough without any production. Denies any chills, abdominal pain, nausea, vomiting, diarrhea. DS: Diagnosis - Discharge Diagnosis (1) Sepsis Status: Acute (2) Pneumonia Status: Acute (3) Chest pain Status: Acute DS: Medications - Discharge Medications Prescriptions: levofloxacin [Levaquin] 750 mg PO DAILY #7 tab DS: Summary Hospital Course: 82-year-old male who originally presented to the hospital because of general malaise and fever. Patient had workup done and found to have febrile illness of 102.4. Chest x-ray did indicate consolidation/infiltrate. Patient recently hospitalized for questionable CHF at [facility]. Patient was admitted with healthcare associated pneumonia and started on vancomycin and Zosyn. Patient tolerated treatment well. Patient remained afebrile during his stay in the hospital. Patient was experiencing some pleuritic chest pain in the middle of his chest radiating to the his back secondary to the pneumonia. Patient did undergo d-dimer which was positive and pulmonary angiogram was performed which did not indicate any pulmonary emboli, does reaffirm that patient does have pneumonia. Patient did have further testing done with serial cardiac enzymes and serial EKGs and patient was ruled out for an acute coronary event. Patient clinically stable at this time. Physical therapy evaluated the patient and recommended the patient may benefit from short-term home health care. Case management consulted for arrangement of home health care. Patient clinically stable this time. We will plan discharge accordingly. - Time Spent with Patient Total time spent providing and/or coordinating discharge services: - Quality: VTE Deep Vein Thrombosis/Pulmonary Embolism Present on Admission: No Exam Vital signs: Vital Signs 12/14/17 10:28 12/14/17 11:50 12/14/17 11:52 Temperature 98.0 F 98.0 F Pulse Rate 75 75 Respiratory Rate 18 20 Blood Pressure 126/60 126/60 Pulse Oximetry 96 95 95 12/14/17 16:00 12/14/17 19:45 12/14/17 20:00 Temperature 96.6 F L 97.1 F L Pulse Rate 74 76 Respiratory Rate 20 18 Blood Pressure 130/65 134/67 Pulse Oximetry 95 96 97 12/14/17 22:26 12/15/17 00:00 12/15/17 01:05 Temperature 97.1 F L Pulse Rate 64 102 H Respiratory Rate 20 18 Blood Pressure 114/70 Pulse Oximetry 97 96 12/15/17 04:08 12/15/17 08:00 Temperature 96.7 F L 97.4 F L Pulse Rate 100 H 101 H Respiratory Rate 20 18 Blood Pressure 137/68 122/75 Pulse Oximetry 98 98 Intake & Output 12/14/17 12/15/17 12/15/17 18:59 06:59 18:59 Intake Total 822.5 / 822.5 2462.5 / 2462.5 Output Total 4 / 4 600 / 600 Balance 818.5 / 818.5 1862.5 / 1862.5 Weight 94 kg Intake: IV 462.5 / 462.5 2462.5 / 2462.5 Zosyn 4.5 GM Premix 4.5 gm In 200 / 200 1100 / 1100 100 ml @ 200 mls/hr IV.SIG Q6H DUGLAS Rx#:[id number] Vancomycin Inj 1,250 MG In NS 262.5 / 262.5 262.5 / 262.5 Inj 250 ML @ 262.5 mls/hr IV. SIG Q12H DUGLAS Rx#:[id number] Oral 360 / 360 Output: Urine 4 / 4 600 / 600 Other: Date of Last Bowel Movement 12/14/17 12/14/17 12/15/17 # Bowel Movements 1 2 Narrative: GENERAL: Well-developed, well-nourished, in no acute distress. alert and orientated HEENT: Head is normocephalic without any lesions or masses noted. Facial features are symmetric. Eyes: Extraocular muscles are intact. Conjunctivae were clear. NECK: Supple without any masses. Trachea midline no deviation. No JVD, CARDIAC: Regular rhythm, regular rate. S1/S2 are heard. No murmurs gallops or rubs. LUNGS: Clear to auscultation bilaterally. No wheeze, rhonchi or rales. No use of accessory muscles on inspiration or expiration. ABDOMEN: Soft, nontender. Nondistended. Bowel sounds heard in all 4 quadrants. No organomegaly or masses. Negative rebound, negative guarding EXTREMITIES: No edema, pulses are equal bilaterally. No cyanosis or clubbing NEUROLOGY: Mood and affect appear appropriate. Cranial nerves II through XII grossly intact. Moving all extremities, speech clear Results Procedures completed during hospitalization: None Labs on day of discharge: Labs from last 24 hours 12/15/17 12/15/17 12/14/17 04:44 04:44 16:10 CBC w Diff Auto diff final WBC 6.5 RBC 4.39 L Hgb 13.4 Hct 39.5 MCV 90.0 MCH 30.6 MCHC 34.0 RDW 14.3 Plt Count 161 MPV 8.0 Neut % (Auto) 70.7 H Lymph % (Auto) 20.0 [facility] % (Auto) 8.6 H Eos % (Auto) 0.5 Baso % (Auto) 0.2 Neut # (Auto) 4.6 Lymph # (Auto) 1.3 [facility] # (Auto) 0.6 Eos # (Auto) 0.0 Baso # (Auto) 0.0 WBC Differential . Differential Comment . D-Dimer Quant (PE/DVT) Sodium 144 Potassium 3.4 L Chloride 110 H Carbon Dioxide 27.3 Anion Gap 7 BUN 16 Creatinine 0.99 Estimated GFR 72 L Random Glucose 103 Calcium 9.5 Total Creatine Kinase 58 Troponin I 0.02 Ur Collection Type Urine Color Urine Clarity Urine pH Ur Specific [place] Urine Protein Urine Glucose (UA) Urine Ketones Urine Occult Blood Urine Nitrate Urine Bilirubin Urine Urobilinogen Ur Leukocyte Esterase Ur Squamous Epith Cells Micro UA Comment Urine Culture Comments 12/14/17 12/14/17 12/14/17 12:10 09:40 09:40 CBC w Diff WBC RBC Hgb Hct MCV MCH MCHC RDW Plt Count MPV Neut % (Auto) Lymph % (Auto) [facility] % (Auto) Eos % (Auto) Baso % (Auto) Neut # (Auto) Lymph # (Auto) [facility] # (Auto) Eos # (Auto) Baso # (Auto) WBC Differential Differential Comment D-Dimer Quant (PE/DVT) 1.38 H Sodium Potassium Chloride Carbon Dioxide Anion Gap BUN Creatinine Estimated GFR Random Glucose Calcium Total Creatine Kinase 33 L Troponin I 0.02 Ur Collection Type Clean catch Urine Color Yellow Urine Clarity Clear Urine pH 6.0 Ur Specific [place] Less/equal 1.005 Urine Protein Negative Urine Glucose (UA) Negative Urine Ketones Negative Urine Occult Blood Trace Urine Nitrate Negative Urine Bilirubin Negative Urine Urobilinogen 0.2 Ur Leukocyte Esterase Negative Ur Squamous Epith Cells 0-5 Micro UA Comment Culture not ind Urine Culture Comments Culture not ind Preliminary micro results at discharge 12/13/17 22:50 Aerobic Blood Culture - Preliminary Blood - Peripheral No growth in 1 day Anaerobic Blood Culture - Preliminary No growth in 1 day 12/13/17 22:55 Aerobic Blood Culture - Preliminary Blood - Peripheral No growth in 1 day Anaerobic Blood Culture - Preliminary No growth in 1 day - Impressions ITS Impressions Chest X-Ray 12/13/17 22:39 CONCLUSION: Moderate severity bilateral lower lung zone parenchymal opacity indicating atelectasis, consolidation, or pulmonary edema. Small left pleural effusion. Chest CTA 12/14/17 00:00 CONCLUSION: 1. No evidence for pulmonary embolism. 2. Bibasilar consolidation 3. Coronary artery calcifications. Discharge Plan - Discharge Disposition Patient Disposition: W/Home Health Service - Discharge Condition Condition: Stable - Discharge Order Discharge Orders: Discharge Order (Routine); Ordered 12/15/17 Ordered By: Rodriguez Silveira - Discharge Details Anticipated Discharge Date: 12/15/17 - Physicians Team Primary Care Provider: Joe Palafox Attending Provider: Belkys Rihcey
--- NOTE | 2017-12-15 10:43 | P.DCO ---
- Physical Therapy Order: Evaluate and treat, Improve ambulation, Strength and gait training - Home Health Nursing Order: Medical education, Signs/symptoms of disease process, Nursing assessment with vital signs - Certification I have seen patient Austen Melgar on 12/15/17. My clinical findings support the need for the requested home health care services because: Patient has SOB, Deconditioned with increased weakness I certify that my clinical findings support that this patient is homebound because: Unsteady gait/balance, Unsafe to leave home unassisted
[2017-12-15] MEDS ORDERED: VANCOMYCIN TROUGH OTHER ONE (23:45)
== END 2017-12-15 12:56 | disposition home health service (06) ==
LOC: PHED 22:10 → PHEDA 12-14 01:31 → PH3 12-14 08:21
PROVIDERS: ADMIT Internal Medicine; ATTEND Internal Medicine

== ENCOUNTER 2017-12-30 00:11 | Observation (INO) ==
[2017-12-30] MEDS ORDERED: MethylPREDNISolone Sod Succinate Inj 125 MG/2 ML Vial IV.PUSH ONE (00:42)
[2017-12-30 01:00] LABS: Baso % (Auto) 0.4 % (0.0-2.0); Eos % (Auto) 0.6 % (0.0-4.0); Hematocrit 43.4 % (39.0-51.0); Hemoglobin 14.8 gm/dL (13.0-17.0); Lymph # (Auto) 1.1 th/mm3 (1.0-4.8); Lymph % (Auto) 16.9 % (9.0-44.0); Mean Corpuscular Hemoglobin 30.4 pg (27.0-34.0); Mean Corpuscular Volume 89.3 fL (80.0-100.0); Mean Platelet Volume 7.9 fL (7.0-11.0); Mono # (Auto) 0.6 th/mm3 (0.0-0.9); Mono % (Auto) 9.1 % (0.0-8.0); Neut # (Auto) 4.8 th/mm3 (1.8-7.7); Platelet Count 198 th/mm3 (150-450); Red Blood Count 4.86 mil/mm3 (4.50-5.90); Red Cell Distribution Width 14.2 % (11.6-17.2); White Blood Count 6.5 th/mm3 (4.0-11.0)
--- NOTE | 2017-12-30 01:04 | XR ---
EXAM DATE: 12/30/2017 12:53 AM EDT AGE/SEX: 82 years / Male INDICATIONS: Shortness of breath. CLINICAL DATA: This is the patient's initial encounter. Patient reports that signs and symptoms have been present for 1 day and indicates a pain score of 0/10. MEDICAL/SURGICAL HISTORY: Hypertension. Pulmonary embolism. Myocardial infarct. None. COMPARISON: [facility], CHEST 1V SINGLE AP, 12/13/2017. . FINDINGS: A single AP view of the chest demonstrates stable hypoinflation with bibasilar probable atelectatic c hanges. There may be an improving left-sided effusion. Accounting for low lung volumes, the heart siz e is normal. Levoscoliosis of the lumbar spine. Osseous structures are otherwise intact with degenera tive osteoarthritic changes in the right shoulder. CONCLUSION: 1. Persistent hypoinflation with bibasilar atelectatic changes. 2. There may be an improving left-sided effusion, however. 3. 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 Levoscoliosis of the lumbar spi ne. Electronically signed by: César Tejeda MD 12/30/2017 1:02 AM EDT
[2017-12-30 01:13] LABS: Chloride 105 meq/L (98-107); Potassium 3.4 meq/L (3.5-5.1); Sodium 137 meq/L (136-145)
[2017-12-30 01:16] LABS: Albumin 3.4 g/dL (3.4-5.0); Anion Gap 9 meq/L (5-15); Calcium 9.9 mg/dL (8.5-10.1); Carbon Dioxide 23.5 meq/L (21.0-32.0); Glucose,Random 112 mg/dL (74-106)
[2017-12-30 01:17] LABS: Blood Urea Nitrogen 12 mg/dL (7-18)
[2017-12-30 01:19] LABS: Alanine Aminotransferase 25 U/L (12-78)
[2017-12-30 01:20] LABS: Aspartate Aminotransferase 24 U/L (15-37); Glomerular Filtration Rate 79 mL/min (>89)
[2017-12-30 01:21] LABS: Total Protein 6.8 g/dL (6.4-8.2)
[2017-12-30 01:22] LABS: Alkaline Phosphatase 99 U/L (45-117)
[2017-12-30 01:24] LABS: Troponin I 0.03 ng/mL (0.02-0.05)
[2017-12-30 01:35] LABS: Creatine Kinase 78 U/L (39-308)
[2017-12-30] MEDS ORDERED: Acetaminophen 325 MG Tablet PO PRN (02:16)
[2017-12-30] MEDS ORDERED: Bisacodyl 10 MG Supp RECTAL PRN (02:16)
[2017-12-30 02:19] LABS: ABG Base Excess -0.4 mmol/L (-2-2); ABG PCO2 35 mmHg (38-42); ABG PO2 71 mmHg (61-120)
--- NOTE | 2017-12-30 02:42 | ED ---
HPI General Chief complaint: Shortness of Breath/Dyspnea Stated complaint: sob x1 hr Time Seen by Provider: 12/30/17 00:40 History of Present Illness HPI narrative: 82-year-old male history of pneumonia here for evaluation of acute onset of shortness of breath since yesterday, patient was being treated for pneumonia here follow-up with his primary, he does not use any inhalers at home, did not use to smoke, states that yesterday he started having shortness of breath and irregular heartbeats, he has history of A. fib, does not take any blood thinners. He has no chest pain or shortness of breath. Related Data Home Medications Medication Instructions Recorded Confirmed amlodipine 5 mg PO DAILY 12/08/17 12/30/17 gabapentin 300 mg PO TID 12/08/17 12/30/17 hydrocodone-acetaminophen 1 tab PO Q4-6H PRN 12/08/17 12/30/17 oxybutynin chloride 5 mg PO TID PRN 12/08/17 12/30/17 trazodone 100 mg PO HS 12/08/17 12/30/17 furosemide 20 mg PO DAILY 12/30/17 12/30/17 omeprazole 20 mg PO DAILY 12/30/17 12/30/17 tamsulosin 0.4 mg PO DAILY 12/30/17 12/30/17 Allergies Allergy/AdvReac Type Severity Reaction Status Date / Time No Known Allergies Allergy Verified 12/30/17 01:31 Review of Systems Except as stated in HPI: all other systems reviewed are negative [facility] Medical History Medical History Arthritis (Acute) Gastroesophageal reflux (Acute) Heartburn (Acute) History of pulmonary embolism (Acute) Hypertension (Acute) Osteoporosis (Acute) Surgical History Surgical History History of phacoemulsification of cataract of both eyes with intraocular lens implantation (Acute) History of surgical removal of pilonidal cyst (Acute) Social History Social History Substance History: No History of Abuse Second Hand Smoke Exposure: No Smoking Status: Never smoker How Often Do You Have a Drink Containing Alcohol: Monthly or less Recent Travel in [place] within the Last 8 Weeks: No Immunization History Tetanus Immunization: Unsure Tetanus Immunization Year if Known: 2018 Exam Narrative Exam Narrative: GENERAL: Alert oriented 3 no acute distress. SKIN: Focused skin assessment warm/dry. HEAD: Atraumatic. Normocephalic. EYES: Pupils equal and round. No scleral icterus. No injection or drainage. ENT: No nasal bleeding or discharge. Mucous membranes pink and moist. NECK: Trachea midline. No JVD. CARDIOVASCULAR: Regular rate and rhythm. No murmur appreciated. RESPIRATORY: No accessory muscle use. Clear to auscultation. Breath sounds equal bilaterally. GASTROINTESTINAL: Abdomen soft, non-tender, nondistended. Hepatic and splenic margins not palpable. MUSCULOSKELETAL: No obvious deformities. No clubbing. No cyanosis. No edema. NEUROLOGICAL: Awake and alert. No obvious cranial nerve deficits. Motor grossly within normal limits. Normal speech. PSYCHIATRIC: Appropriate mood and affect; insight and judgment normal. Course Initial Documented Vital Signs Temperature 98.7 F 12/30/17 00:18 Pulse Rate 77 12/30/17 00:18 Respiratory Rate 24 12/30/17 00:18 Blood Pressure 113/83 12/30/17 00:18 Pulse Oximetry 95 12/30/17 00:18 Last Documented Vital Signs Temperature 98.4 F 12/31/17 16:00 Pulse Rate 102 H 12/31/17 18:09 Respiratory Rate 39 H 12/31/17 18:09 Blood Pressure 132/69 12/31/17 18:08 Pulse Oximetry 92 L 12/31/17 18:08 Medical Decision Making MDM Narrative Medical decision making narrative: 82-year-old male was here earlier for pneumonia, his back for acute onset of shortness of breath started yesterday, minimal wheezing, hypoxia, saturating in the lower 90s on room air, mildly elevated d-dimer, CT abdomen and chest are negative for any acute pathology, CAT scan chest shows mild infiltrate that improved from last CAT scan. Patient was given neb treatment, this steroid and will be admitted for COPD exacerbation with hypoxia. Lab Data Result diagrams: 12/31/17 04:18 12/31/17 04:18 Lab Results 12/30/17 12/30/17 12/30/17 Range/Units 00:45 00:45 00:45 CBC w Diff Auto diff final WBC 6.5 (4.0-11.0) th/mm3 RBC 4.86 (4.50-5.90) mil/mm3 Hgb 14.8 (13.0-17.0) gm/dL Hct 43.4 (39.0-51.0) % MCV 89.3 (80.0-100.0) fL MCH 30.4 (27.0-34.0) pg MCHC 34.0 (32.0-36.0) % RDW 14.2 (11.6-17.2) % Plt Count 198 (150-450) th/mm3 MPV 7.9 (7.0-11.0) fL Neut % (Auto) 73.0 H (16.0-70.0) % Lymph % (Auto) 16.9 (9.0-44.0) % [place] % (Auto) 9.1 H (0.0-8.0) % Eos % (Auto) 0.6 (0.0-4.0) % Baso % (Auto) 0.4 (0.0-2.0) % Neut # (Auto) 4.8 (1.8-7.7) th/mm3 Lymph # (Auto) 1.1 (1.0-4.8) th/mm3 [place] # (Auto) 0.6 (0.0-0.9) th/mm3 Eos # (Auto) 0.0 (0.0-0.4) th/mm3 Baso # (Auto) 0.0 (0.0-0.2) th/mm3 WBC Differential . Differential Comment . D-Dimer Quant (PE/DVT) 1.60 H (0.00-0.50) mg/L FEU Puncture Site Patient Temperature O2 Saturation (90-100) % ABG pH (7.380-7.420) ABG pCO2 (38-42) mmHg ABG pO2 (61-120) mmHg ABG HCO3 (22-26) mmol/L ABG O2 Content (12.0-20.0) Vol % ABG Base Excess (-2-2) mmol/L ABG Methemoglobin (0-2) % Tariq Test Hemoglobin (12.0-16.0) G/DL Carboxyhemoglobin (0-4) % O2 Delivery Device Inspired O2 % Critical Value Sodium 137 (136-145) meq/L Potassium 3.4 L (3.5-5.1) meq/L Chloride 105 (98-107) meq/L Carbon Dioxide 23.5 (21.0-32.0) meq/L Anion Gap 9 (5-15) meq/L BUN 12 (7-18) mg/dL Creatinine 0.91 (0.60-1.30) mg/dL Estimated GFR 79 L (>89) mL/min Random Glucose 112 H (74-106) mg/dL Calcium 9.9 (8.5-10.1) mg/dL Total Bilirubin 2.0 H (0.2-1.0) mg/dL AST 24 (15-37) U/L ALT 25 (12-78) U/L Alkaline Phosphatase 99 (45-117) U/L Total Creatine Kinase 78 (39-308) U/L Troponin I 0.03 (0.02-0.05) ng/mL B-Natriuretic Peptide (0-100) pg/mL Total Protein 6.8 (6.4-8.2) g/dL Albumin 3.4 (3.4-5.0) g/dL Urine Color (Yellw/Straw) Urine Clarity (Clear) Urine pH (5.0-8.5) Ur Specific [place] (1.002-1.035) Urine Protein (Neg-Trace) mg/dL Urine Glucose (UA) (Negative) mg/dL Urine Ketones (Negative) mg/dL Urine Occult Blood (Negative) Urine Nitrate (Negative) Urine Bilirubin (Negative) Urine Urobilinogen (Less than 2) mg/dL Ur Leukocyte Esterase (Negative) Urine RBC (0-3) /hpf Urine WBC (0-5) /hpf Ur Squamous Epith Cells (0-5) /hpf Micro UA Comment Urine Culture Comments Stl C.difficile Tox PCR (Negative) St C. diff Tox Epid 027 (Negative) 12/30/17 12/30/17 12/30/17 Range/Units 00:45 02:07 05:30 CBC w Diff WBC (4.0-11.0) th/mm3 RBC (4.50-5.90) mil/mm3 Hgb (13.0-17.0) gm/dL Hct (39.0-51.0) % MCV (80.0-100.0) fL MCH (27.0-34.0) pg MCHC (32.0-36.0) % RDW (11.6-17.2) % Plt Count (150-450) th/mm3 MPV (7.0-11.0) fL Neut % (Auto) (16.0-70.0) % Lymph % (Auto) (9.0-44.0) % [place] % (Auto) (0.0-8.0) % Eos % (Auto) (0.0-4.0) % Baso % (Auto) (0.0-2.0) % Neut # (Auto) (1.8-7.7) th/mm3 Lymph # (Auto) (1.0-4.8) th/mm3 [place] # (Auto) (0.0-0.9) th/mm3 Eos # (Auto) (0.0-0.4) th/mm3 Baso # (Auto) (0.0-0.2) th/mm3 WBC Differential Differential Comment D-Dimer Quant (PE/DVT) (0.00-0.50) mg/L FEU Puncture Site Right radial Patient Temperature 98.6 O2 Saturation 92 (90-100) % ABG pH 7.44 H (7.380-7.420) ABG pCO2 35 L (38-42) mmHg ABG pO2 71 (61-120) mmHg ABG HCO3 23 (22-26) mmol/L ABG O2 Content 20.2 H (12.0-20.0) Vol % ABG Base Excess -0.4 (-2-2) mmol/L ABG Methemoglobin 1.3 (0-2) % Tariq Test Present Hemoglobin 15.6 (12.0-16.0) G/DL Carboxyhemoglobin 1.6 (0-4) % O2 Delivery Device Room air Inspired O2 21 % Critical Value No Sodium (136-145) meq/L Potassium (3.5-5.1) meq/L Chloride (98-107) meq/L Carbon Dioxide (21.0-32.0) meq/L Anion Gap (5-15) meq/L BUN (7-18) mg/dL Creatinine (0.60-1.30) mg/dL Estimated GFR (>89) mL/min Random Glucose (74-106) mg/dL Calcium (8.5-10.1) mg/dL Total Bilirubin (0.2-1.0) mg/dL AST (15-37) U/L ALT (12-78) U/L Alkaline Phosphatase (45-117) U/L Total Creatine Kinase (39-308) U/L Troponin I (0.02-0.05) ng/mL B-Natriuretic Peptide 46 (0-100) pg/mL Total Protein (6.4-8.2) g/dL Albumin (3.4-5.0) g/dL Urine Color Yellow (Yellw/Straw) Urine Clarity Clear (Clear) Urine pH 5.5 (5.0-8.5) Ur Specific [place] Less/equal 1.005 (1.002-1.035) Urine Protein 30 H (Neg-Trace) mg/dL Urine Glucose (UA) Negative (Negative) mg/dL Urine Ketones 15 H (Negative) mg/dL Urine Occult Blood Moderate H (Negative) Urine Nitrate Negative (Negative) Urine Bilirubin Negative (Negative) Urine Urobilinogen 0.2 (Less than 2) mg/dL Ur Leukocyte Esterase Negative (Negative) Urine RBC 15-50 H (0-3) /hpf Urine WBC 0-5 (0-5) /hpf Ur Squamous Epith Cells 0-5 (0-5) /hpf Micro UA Comment Culture not ind Urine Culture Comments Culture not ind Stl C.difficile Tox PCR (Negative) St C. diff Tox Epid 027 (Negative) 12/30/17 12/31/17 12/31/17 Range/Units 16:30 04:18 04:18 CBC w Diff Auto diff final WBC 15.4 H (4.0-11.0) th/mm3 RBC 5.10 (4.50-5.90) mil/mm3 Hgb 15.5 (13.0-17.0) gm/dL Hct 46.6 (39.0-51.0) % MCV 91.3 (80.0-100.0) fL MCH 30.5 (27.0-34.0) pg MCHC 33.4 (32.0-36.0) % RDW 13.9 (11.6-17.2) % Plt Count 210 (150-450) th/mm3 MPV 7.9 (7.0-11.0) fL Neut % (Auto) 91.4 H (16.0-70.0) % Lymph % (Auto) 2.8 L (9.0-44.0) % [place] % (Auto) 5.6 (0.0-8.0) % Eos % (Auto) 0.2 (0.0-4.0) % Baso % (Auto) 0.0 (0.0-2.0) % Neut # (Auto) 14.1 H (1.8-7.7) th/mm3 Lymph # (Auto) 0.4 L (1.0-4.8) th/mm3 [place] # (Auto) 0.9 (0.0-0.9) th/mm3 Eos # (Auto) 0.0 (0.0-0.4) th/mm3 Baso # (Auto) 0.0 (0.0-0.2) th/mm3 WBC Differential . Differential Comment . D-Dimer Quant (PE/DVT) (0.00-0.50) mg/L FEU Puncture Site Patient Temperature O2 Saturation (90-100) % ABG pH (7.380-7.420) ABG pCO2 (38-42) mmHg ABG pO2 (61-120) mmHg ABG HCO3 (22-26) mmol/L ABG O2 Content (12.0-20.0) Vol % ABG Base Excess (-2-2) mmol/L ABG Methemoglobin (0-2) % Tariq Test Hemoglobin (12.0-16.0) G/DL Carboxyhemoglobin (0-4) % O2 Delivery Device Inspired O2 % Critical Value Sodium 138 (136-145) meq/L Potassium 3.8 (3.5-5.1) meq/L Chloride 105 (98-107) meq/L Carbon Dioxide 27.5 (21.0-32.0) meq/L Anion Gap 6 (5-15) meq/L BUN 15 (7-18) mg/dL Creatinine 0.85 (0.60-1.30) mg/dL Estimated GFR 86 L (>89) mL/min Random Glucose 149 H (74-106) mg/dL Calcium 10.0 (8.5-10.1) mg/dL Total Bilirubin (0.2-1.0) mg/dL AST (15-37) U/L ALT (12-78) U/L Alkaline Phosphatase (45-117) U/L Total Creatine Kinase (39-308) U/L Troponin I (0.02-0.05) ng/mL B-Natriuretic Peptide (0-100) pg/mL Total Protein (6.4-8.2) g/dL Albumin (3.4-5.0) g/dL Urine Color (Yellw/Straw) Urine Clarity (Clear) Urine pH (5.0-8.5) Ur Specific [place] (1.002-1.035) Urine Protein (Neg-Trace) mg/dL Urine Glucose (UA) (Negative) mg/dL Urine Ketones (Negative) mg/dL Urine Occult Blood (Negative) Urine Nitrate (Negative) Urine Bilirubin (Negative) Urine Urobilinogen (Less than 2) mg/dL Ur Leukocyte Esterase (Negative) Urine RBC (0-3) /hpf Urine WBC (0-5) /hpf Ur Squamous Epith Cells (0-5) /hpf Micro UA Comment Urine Culture Comments Stl C.difficile Tox PCR Negative (Negative) St C. diff Tox Epid 027 Negative (Negative) Imaging Data Radiologist's impression: Chest X-Ray 12/30/17 00:42 CONCLUSION: 1. Persistent hypoinflation with bibasilar atelectatic changes. 2. There may be an improving left-sided effusion, however. 3. 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 Levoscoliosis of the lumbar spine. Abdomen/Pelvis CT 12/30/17 02:22 CONCLUSION: 1. Bibasilar airspace disease. Diagnostic considerations include atelectasis or mild infiltrates, particularly on the right. 2. Bilateral nonobstructing renal calculi with the largest in the right lower pole measuring 1.5 cm in diameter. 3. Otherwise, no acute intraperitoneal or pelvic process to explain current clinical symptoms Chest CTA 12/30/17 02:22 CONCLUSION: 1. Persistent bibasilar airspace disease, right worse than left. Diagnostic considerations include atelectasis versus mild infiltrate. These were present previously with some improvement on the left. 2. No pulmonary embolus. Thoracic aorta is normal in caliber throughout its length Abdomen/Bladder Ultrasound 12/31/17 08:00 CONCLUSION: 1. Bilateral nonobstructing renal stones again visualized with no hydronephrosis. Discharge Plan Discharge Disposition Patient Disposition: 30 Still Patient Discharge Condition Condition: Stable Physicians Team ED Provider: Chaim Zaragoza Primary Care Provider: Joe Palafox Attending Provider: Naga Tobias Other Providers: Naa Jacome ; Harmeet,Judson E Discharge Interventions Interventions: ED Discharge Assessment Last Done: 12/30/17 07:20 Vital Signs Last Done: 12/30/17 01:55 Status ED Status: Left Department Discharge Information Discharge Date/Time: 12/30/17 07:15
--- NOTE | 2017-12-30 03:18 | CT ---
EXAM DATE: 12/30/2017 3:10 AM EDT AGE/SEX: 82 years / Male INDICATIONS: Shortness of breath. History of pneumonia. CLINICAL DATA: This is the patient's initial encounter. Patient reports that signs and symptoms have been present for 1 day and indicates a pain score of 0/10. MEDICAL/SURGICAL HISTORY: Hypertension. Cholecystectomy. RADIATION DOSE: 23.89 CTDI (mGy) COMPARISON: [facility], CTA PULMONARY W CONTRAST W 3D, 12/14/2017. . TECHNIQUE: Volumetric scanning was performed using a multi-row detector CT scanner during bolus infu eli of 100 ml Omnipaque 350 (iohexol) nonionic water-soluble contrast as a cumulative dose for mult iple exams. The data was post processed with a variety of visualization algorithms including full vol ume maximum intensity projection and sliding thin slab reformation. Using automated exposure control and adjustment of the mA and/or kV according to patient size, radiation dose was kept as low as reas onably achievable to obtain optimal diagnostic quality images. DICOM format image data is available electronically for review and comparison. FINDINGS: Pulmonary Arteries: No filling defects are seen in the pulmonary arteries out to the subsegmental ve ssels. The left and right pulmonary arteries are normal in diameter. Lung: Persistent bibasilar airspace disease, right greater than left. Findings are likely atelectati c although mild infiltrate cannot be excluded, particularly on the right. Findings were present previ ously. Punctate pleural-based calcification posteriorly in the left base Effusion: None. Mediastinum: No evidence of mediastinal or hilar adenopathy. Thoracic aorta is normal in caliber wit hout aneurysmal disease. Atherosclerotic calcification of the coronary arteries. Other: The axilla is unremarkable. 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 CONCLUSION: 1. Persistent bibasilar airspace disease, right worse than left. Diagnostic considerations include a telectasis versus mild infiltrate. These were present previously with some improvement on the left. 2. No pulmonary embolus. Thoracic aorta is normal in caliber throughout its length Electronically signed by: César Tejeda MD 12/30/2017 3:16 AM EDT
--- NOTE | 2017-12-30 03:27 | CT ---
EXAM DATE: 12/30/2017 3:14 AM EDT AGE/SEX: 82 years / Male INDICATIONS: Abdominal pain. CLINICAL DATA: This is the patient's initial encounter. Patient reports that signs and symptoms have been present for 1 day and indicates a pain score of 5/10. MEDICAL/SURGICAL HISTORY: Hypertension. Cholecystectomy. Laminectomy. TURP. ORAL CONTRAST: No oral contrast ingested. RADIATION DOSE: 21.91 CTDI (mGy) COMPARISON: [facility], MR PELVIS W/O CONTRAST, 11/10/2015. . TECHNIQUE: Multiple contiguous axial images were obtained through the abdomen and pelvis following b olus infusion of 100 ml Omnipaque 350 (iohexol) nonionic water-soluble contrast as a cumulative dos e for multiple exams. No oral contrast ingested. Using automated exposure control and adjustment of the mA and/or kV according to patient size, radiation dose was kept as low as reasonably achievable t o obtain optimal diagnostic quality images. DICOM format image data is available electronically for review and comparison. FINDINGS: Lower Lungs: Bibasilar airspace consolidation, right greater than left. Diagnostic considerations inc lude atelectasis or early infiltrate, particularly on the right. Liver: The liver has a homogeneous density without space-occupying lesion. There is no dilation of th e biliary tree. Patient is status post cholecystectomy Spleen: Homogeneous density without enlargement. Pancreas: Unremarkable without mass or calcification. Kidneys: Bilateral nonobstructing renal calculi. A 5 mm stone is seen in the midpole the left and pr ominent stones in both inferior pole collecting systems measuring 1.1 cm on the right and 1.5 cm on t he left. Benign-appearing punctate cortical cysts in both kidneys. Adrenal Glands: Unremarkable. Aorta: The aorta and proximal iliac vessels are grossly unremarkable without aneurysmal dilation. Bowel/Mesentery: The bowel loops are grossly unremarkable. The cecum and sigmoid colon have a normal configuration. Minimal air distention of the gastric lumen. Abdominal Wall: Intact. Retroperitoneum: No evidence of adenopathy in the retrocrural, para-aortic, or deep pelvic regions. Bladder: Contours are smooth. Reproductive Organs: Prostate is prominent at 5.5 cm Inguinal: The inguinal region is unremarkable without evidence of adenopathy. Bony Structures: Levoscoliosis of the lumbar spine with associated degenerative spurring. Post Contrast: No abnormal areas of enhancement seen. CONCLUSION: 1. Bibasilar airspace disease. Diagnostic considerations include atelectasis or mild infiltrates, pa rticularly on the right. 2. Bilateral nonobstructing renal calculi with the largest in the right lower pole measuring 1.5 cm in diameter. 3. Otherwise, no acute intraperitoneal or pelvic process to explain current clinical symptoms Electronically signed by: César Tejeda MD 12/30/2017 3:25 AM EDT
[2017-12-30] MEDS: Heparin - SQ 10,000 UNITS/ML Vial SQ SCH ×2 (03:32→13:33)
[2017-12-30] MEDS: Temazepam 15 MG Capsule PO PRN ×2 (03:33→23:56)
[2017-12-30 05:43] LABS: Bilirubin,Urine Negative (Negative); Clarity,Urine Clear (Clear); Color,Urine Yellow (Yellw/Straw); Glucose,Urine (UA) Negative (Negative); Leukocyte Esterase,Urine Negative (Negative); Nitrite,Urine Negative (Negative); PH,Urine 5.5 (5.0-8.5); Specific Gravity,Urine Less/Equal 1.005 (1.002-1.035); Urobilinogen,Urine 0.2 mg/dL (Less than 2)
[2017-12-30 05:50] LABS: Squamous Epithelial Cell,Urine 0-5 /hpf (0-5); WBC,Urine 0-5 /hpf (0-5)
--- NOTE | 2017-12-30 10:02 | ECG ---
Date Performed: 12/30/2017 Time Performed: 00:26:44 PTAGE: 82 years EKG: PROBABLE ATRIAL FIBRILLATION WITH RAPID VENTRICULAR RESPONSE INFERIOR MYOCARDIAL INFARCTION ABNORMAL ECG INTERPRETATION BASED ON A DEFAULT AGE OF 40 YEARS PREVIOUS TRACING : 12/14/2017 16.04 DOCTOR: Momo Draper Interpretating Date/Time 12/30/2017 10:01:47
[2017-12-30] MEDS: Senna/Docusate Sodium 8.6/50 MG Tablet PO SCH ×2 (12:55→20:33)
[2017-12-30] MEDS: MethylPREDNISolone Sod Succinate Inj 125 MG/2 ML Vial IV.PUSH SCH ×3 (13:33→20:32)
--- NOTE | 2017-12-30 19:15 | P.HP ---
History of Present Illness Primary Care Physician: Joe Palafox MD History of Present Illness: This is an 82-year-old male who presented to the ER overnight with shortness of breath that required oxygen use and admission. Standard therapy for COPD seemed to resolve his shortness of breath as this morning he is breathing comfortably though still using oxygen. Pulmonary angiogram performed in the ER showed no evidence for pulmonary embolism, though it did show bibasilar atelectasis. On her visit he reports right lower quadrant pain. CT of the abdomen and the ER showed renal calculi that were nonobstructive. I ordered a stool softener after which he had 2 bowel movements but no relief of his right lower quadrant pain. He remains afebrile and is no longer short of breath. He denies chest pain. Review of Systems Constitutional: Denies anorexia, Denies body ache(s), Denies chills, Denies daytime sleepiness, Denies excessive sweating, Denies fatigue, Denies fever(s), Denies headache(s), Denies increased appetite, Denies lack of energy, Denies malaise, Denies night sweats, Denies weakness, Denies weight gain, Denies weight loss, Denies other Eyes: Denies blind spots, Denies blurry vision, Denies bulging eyes, Denies change in vision, Denies double vision, Denies discharge, Denies dry eyes, Denies floaters, Denies irritation, Denies itchy eyes, Denies loss of vision, Denies pain, Denies requires corrective lenses, Denies sensitivity to light, Denies other Ears, Nose, Mouth, and Throat: Denies abnormal hearing, Denies bleeding gums, Denies bad breath, Denies change in voice, Denies dental pain, Denies difficulty swallowing, Denies dizziness, Denies dry mouth, Denies ear discharge , Denies ear pain, Denies facial pain, Denies headache(s), Denies hearing loss, Denies hoarseness, Denies lip swelling, Denies nosebleed, Denies mouth lesions, Denies mouth pain, Denies nasal congestion, Denies nasal discharge, Denies nasal obstruction, Denies nasal trauma, Denies neck lump, Denies neck pain, Denies nose pain, Denies pain with swallowing, Denies poor balance, Denies post nasal drip, Denies ringing in the ears, Denies sinus pain, Denies sinus pressure , Denies sore throat, Denies throat swelling, Denies tongue swelling, Denies other Cardiovascular: Denies chest pain, Denies chest pain at rest, Denies chest pain with activity, Denies excessive sweating, Denies fainting, Denies fast heart rate, Denies foot swelling, Denies generalized swelling, Denies irregular heart rhythm, Denies leg pain with activity, Denies leg sores, Denies leg swelling, Denies lightheadedness, Denies radiating jaw, neck or arm pain, Denies rapid, pounding, or irregular heartbeat, Denies shortness of breath, Denies shortness of breath with activity, Denies shortness of breath when lying down, Denies shortness of breath causing sudden awakening, Denies slow heart rate, Denies other Respiratory: Reports chest congestion, Reports shortness of breath, Reports shortness of breath with activity, Denies cough Gastrointestinal: Reports abdominal pain, Reports loose stools, Denies black, tarry stools, Denies bloating, Denies bright, red blood in stools Musculoskeletal: Denies abnormal walking, Denies back pain, Denies body aches, Denies decreased muscle mass, Denies deformity, Denies joint pain, Denies joint swelling, Denies limited joint movement, Denies loss of height, Denies muscle cramps, Denies muscle weakness, Denies neck pain, Denies numbness, Denies radiating pain into limb, Denies stiffness, Denies tingling, Denies other Skin/Breast: Denies acne, Denies bleeding lesions, Denies boil, Denies breast swelling, Denies breast skin changes, Denies breast pain, Denies breast lump, Denies change in breast shape, Denies change in hair, Denies change in skin color, Denies changing lesions, Denies dry skin, Denies excessive hair growth, Denies hair loss, Denies itching, Denies lesions, Denies nail changes, Denies new lesions, Denies nipple discharge, Denies non-healing lesions, Denies redness , Denies sensitivity to light, Denies rash, Denies skin pain, Denies skin ulcer , Denies sores, Denies stretch cruz, Denies unusual bruising, Denies wounds, Denies yellowing of the skin, Denies other Neurologic: Denies abnormal hearing, Denies abnormal movements, Denies abnormal speech, Denies abnormal walking, Denies behavioral changes, Denies burning sensations, Denies confusion, Denies dizziness, Denies fainting, Denies frequent falls, Denies headache(s), Denies lack of coordination, Denies localized weakness, Denies loss of vision, Denies memory loss, Denies numbness, Denies other visual disturbances, Denies radiating pain, Denies restless legs, Denies convulsions, Denies seizure-like activity, Denies sensory deficit, Denies tingling, Denies tingling/numbness/burning sensations, Denies tremor(s), Denies unsteadiness, Denies weakness, Denies other Psychiatric: Denies abnormal sleep pattern, Denies anxiety, Denies behavioral changes, Denies change in appetite, Denies change in sex drive, Denies confusion , Denies depression, Denies difficulty concentrating, Denies hearing things others do not hear, Denies hopelessness, Denies irritability, Denies lack of enjoyment, Denies memory loss, Denies mood swings, Denies panic attacks, Denies paranoia, Denies seeing things others do not see, Denies sensing things others do not sense, Denies tactile hallucinations, Denies thoughts of hurting/killing others, Denies thoughts of hurting/killing yourself, Denies other PMFSH - History History Provided By: Patient - Medical History Medical History: Medical History (Last Updated 12/30/17 @ 10:09 by Lena Dangelo RN) Arthritis Gastroesophageal reflux Heartburn History of pulmonary embolism Hypertension Osteoporosis - Surgical History Surgical History: Surgical History (Last Updated 12/30/17 @ 10:09 by Lena Dangelo RN) History of phacoemulsification of cataract of both eyes with intraocular lens implantation History of surgical removal of pilonidal cyst - Tobacco History Second Hand Smoke Exposure: No Smoking Status: Never smoker - Alcohol History How Often Do You Have a Drink Containing Alcohol: Monthly or less - Substance Use History Substance History: No History of Abuse - Travel History Recent Travel in the [facility] Within the Last 8 Weeks: No - Immunization History Tetanus Immunization: <5 Years Tetanus Immunization Year if Known: 2017 Hx Influenza Vaccine This Season: Yes Medications and Allergies Active Medications: Active Medications Acetaminophen (Tylenol) 650 mg PO Q4H PRN PRN Reason: Temp > 100.4 Al Hydroxide/Mg Hydroxide (Milk Of Magnesia Liq) 30 ml PO Q12H PRN PRN Reason: Mild Constipation Last Admin: 12/30/17 12:54 Dose: 30 ml Albuterol (Duoneb Neb (Kristine)) 1 ampul NEB Q6HR WHILE AWAKE NEB [facility] Last Admin: 12/30/17 17:56 Dose: Not Given Albuterol (Duoneb Neb (Prn)) 1 ampul NEB Q2HR NEB PRN PRN Reason: SHORTNESS OF BREATH/WHEEZING Bisacodyl (Dulcolax Supp) 10 mg RECTAL DAILY PRN PRN Reason: SEVERE CONSITIPATION Heparin Sodium (Porcine) (Heparin Inj) 5,000 units SQ Q12H [facility] Last Admin: 12/30/17 13:33 Dose: 5,000 units Lactulose (Lactulose Liq) 30 ml PO DAILY PRN PRN Reason: SEVERE CONSITIPATION Methylprednisolone Sodium Succinate (Solumedrol Inj) 60 mg IV.PUSH Q6H [facility] Last Admin: 12/30/17 14:59 Dose: 60 mg Ondansetron HCl (Zofran Inj) 4 mg IV.PUSH Q6H PRN PRN Reason: NAUSEA OR VOMITING Last Admin: 12/30/17 02:23 Dose: 4 mg Senna/Docusate Sodium (Zo-Colace) 1 tab PO BID [facility] Last Admin: 12/30/17 12:55 Dose: Not Given Sennosides (Senokot) 17.2 mg PO Q12H PRN PRN Reason: Moderate Constipation Sodium Chloride (Ns Flush) 2 ml IV.FLUSH BID [facility] Last Admin: 12/30/17 12:54 Dose: 2 ml Sodium Chloride (Ns Flush) 2 ml IV.FLUSH PRN PRN PRN Reason: FLUSH AFTER USING IV ACCESS Last Admin: 12/30/17 02:24 Dose: 2 ml Temazepam (Restoril) 15 mg PO HS PRN PRN Reason: INSOMNIA Last Admin: 12/30/17 03:33 Dose: 15 mg Allergies Allergy/AdvReac Type Severity Reaction Status Date / Time No Known Allergies Allergy Verified 12/30/17 01:31 Home Medications Medication Instructions Recorded Confirmed Type amlodipine 5 mg PO DAILY 12/08/17 12/30/17 History gabapentin 300 mg PO TID 12/08/17 12/30/17 History hydrocodone-acetaminophen 1 tab PO Q4-6H PRN 12/08/17 12/30/17 History oxybutynin chloride 5 mg PO TID PRN 12/08/17 12/30/17 History trazodone 100 mg PO HS 12/08/17 12/30/17 History furosemide 20 mg PO DAILY 12/30/17 12/30/17 History omeprazole 20 mg PO DAILY 12/30/17 12/30/17 History tamsulosin 0.4 mg PO DAILY 12/30/17 12/30/17 History Exam Vital signs: Vital Signs 12/30/17 00:18 12/30/17 00:30 12/30/17 01:14 Temperature 98.7 F Pulse Rate 77 113 H Respiratory Rate 24 Blood Pressure 113/83 Pulse Oximetry 95 95 12/30/17 01:18 12/30/17 01:22 12/30/17 01:23 Temperature Pulse Rate 106 H 110 H 106 H Respiratory Rate 30 H 18 18 Blood Pressure 165/90 H Pulse Oximetry 95 12/30/17 01:55 12/30/17 02:15 12/30/17 03:38 Temperature Pulse Rate 123 H 118 H Respiratory Rate 30 H 16 Blood Pressure 120/71 Pulse Oximetry 95 93 L 12/30/17 07:05 12/30/17 07:37 12/30/17 07:44 Temperature Pulse Rate 121 H 112 H Respiratory Rate 18 23 Blood Pressure 128/74 Pulse Oximetry 96 95 12/30/17 08:00 12/30/17 09:00 12/30/17 10:00 Temperature 98.6 F Pulse Rate 113 H 112 H 104 H Respiratory Rate 23 23 23 Blood Pressure 140/70 135/80 Pulse Oximetry 96 96 95 12/30/17 11:00 12/30/17 12:00 12/30/17 13:00 Temperature Pulse Rate 98 H 114 H 90 Respiratory Rate 19 25 H 24 Blood Pressure 138/70 149/74 H Pulse Oximetry 96 94 L 12/30/17 13:08 12/30/17 14:00 12/30/17 16:00 Temperature 98.4 F Pulse Rate 98 H 78 90 Respiratory Rate 39 H 18 28 H Blood Pressure 141/82 H 119/69 132/64 Pulse Oximetry 97 97 Intake & Output 12/30/17 12/30/17 12/31/17 06:59 18:59 06:59 Intake Total 240 / 240 Output Total 250 / 250 Balance -10 / -10 Weight 89 kg Intake: Oral 240 / 240 Output: Stool 250 / 250 Other: Date of Last Bowel Movement 12/30/17 # Bowel Movements 3 Narrative: GENERAL: aaox3, uncomfortable from right lower quadrant pain SKIN: Warm and dry. HEAD: Atraumatic. Normocephalic. EYES: Pupils equal and round. No scleral icterus. No injection or drainage. ENT: No nasal bleeding or discharge. Mucous membranes pink and moist. NECK: Trachea midline. No JVD. CARDIOVASCULAR: Regular rate and rhythm. RESPIRATORY: No accessory muscle use. Clear to auscultation. Breath sounds equal bilaterally. GASTROINTESTINAL: Abdomen soft, right lower quadrant tenderness, no guarding, no rebound, nondistended. Hepatic and splenic margins not palpable. MUSCULOSKELETAL: Extremities without clubbing, cyanosis, or edema. No obvious deformities. NEUROLOGICAL: Awake and alert. No obvious cranial nerve deficits. Motor grossly within normal limits. Five out of 5 muscle strength in the arms and legs. Normal speech. PSYCHIATRIC: Appropriate mood and affect; insight and judgment normal. Results - Labs CBC & Chem 7: 12/30/17 00:45 12/30/17 00:45 Labs: Laboratory Results - last 24 hr 12/30/17 12/30/17 12/30/17 00:45 00:45 00:45 CBC w Diff Auto diff final WBC 6.5 RBC 4.86 Hgb 14.8 Hct 43.4 MCV 89.3 MCH 30.4 MCHC 34.0 RDW 14.2 Plt Count 198 MPV 7.9 Neut % (Auto) 73.0 H Lymph % (Auto) 16.9 [place] % (Auto) 9.1 H Eos % (Auto) 0.6 Baso % (Auto) 0.4 Neut # (Auto) 4.8 Lymph # (Auto) 1.1 [place] # (Auto) 0.6 Eos # (Auto) 0.0 Baso # (Auto) 0.0 WBC Differential . Differential Comment . D-Dimer Quant (PE/DVT) 1.60 H Puncture Site Patient Temperature O2 Saturation ABG pH ABG pCO2 ABG pO2 ABG HCO3 ABG O2 Content ABG Base Excess ABG Methemoglobin Tariq Test Hemoglobin Carboxyhemoglobin O2 Delivery Device Inspired O2 Critical Value Sodium 137 Potassium 3.4 L Chloride 105 Carbon Dioxide 23.5 Anion Gap 9 BUN 12 Creatinine 0.91 Estimated GFR 79 L Random Glucose 112 H Calcium 9.9 Total Bilirubin 2.0 H AST 24 ALT 25 Alkaline Phosphatase 99 Total Creatine Kinase 78 Troponin I 0.03 B-Natriuretic Peptide Total Protein 6.8 Albumin 3.4 Urine Color Urine Clarity Urine pH Ur Specific [place] Urine Protein Urine Glucose (UA) Urine Ketones Urine Occult Blood Urine Nitrate Urine Bilirubin Urine Urobilinogen Ur Leukocyte Esterase Urine RBC Urine WBC Ur Squamous Epith Cells Micro UA Comment Urine Culture Comments 12/30/17 12/30/17 12/30/17 00:45 02:07 05:30 CBC w Diff WBC RBC Hgb Hct MCV MCH MCHC RDW Plt Count MPV Neut % (Auto) Lymph % (Auto) [place] % (Auto) Eos % (Auto) Baso % (Auto) Neut # (Auto) Lymph # (Auto) [place] # (Auto) Eos # (Auto) Baso # (Auto) WBC Differential Differential Comment D-Dimer Quant (PE/DVT) Puncture Site Right radial Patient Temperature 98.6 O2 Saturation 92 ABG pH 7.44 H ABG pCO2 35 L ABG pO2 71 ABG HCO3 23 ABG O2 Content 20.2 H ABG Base Excess -0.4 ABG Methemoglobin 1.3 Tariq Test Present Hemoglobin 15.6 Carboxyhemoglobin 1.6 O2 Delivery Device Room air Inspired O2 21 Critical Value No Sodium Potassium Chloride Carbon Dioxide Anion Gap BUN Creatinine Estimated GFR Random Glucose Calcium Total Bilirubin AST ALT Alkaline Phosphatase Total Creatine Kinase Troponin I B-Natriuretic Peptide 46 Total Protein Albumin Urine Color Yellow Urine Clarity Clear Urine pH 5.5 Ur Specific [place] Less/equal 1.005 Urine Protein 30 H Urine Glucose (UA) Negative Urine Ketones 15 H Urine Occult Blood Moderate H Urine Nitrate Negative Urine Bilirubin Negative Urine Urobilinogen 0.2 Ur Leukocyte Esterase Negative Urine RBC 15-50 H Urine WBC 0-5 Ur Squamous Epith Cells 0-5 Micro UA Comment Culture not ind Urine Culture Comments Culture not ind - Imaging Impressions Chest X-Ray 12/30/17 00:42 CONCLUSION: 1. Persistent hypoinflation with bibasilar atelectatic changes. 2. There may be an improving left-sided effusion, however. 3. 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 Levoscoliosis of the lumbar spine. Abdomen/Pelvis CT 12/30/17 02:22 CONCLUSION: 1. Bibasilar airspace disease. Diagnostic considerations include atelectasis or mild infiltrates, particularly on the right. 2. Bilateral nonobstructing renal calculi with the largest in the right lower pole measuring 1.5 cm in diameter. 3. Otherwise, no acute intraperitoneal or pelvic process to explain current clinical symptoms Chest CTA 12/30/17 02:22 CONCLUSION: 1. Persistent bibasilar airspace disease, right worse than left. Diagnostic considerations include atelectasis versus mild infiltrate. These were present previously with some improvement on the left. 2. No pulmonary embolus. Thoracic aorta is normal in caliber throughout its length Caprini VTE Risk Assessment Caprini VTE Risk Assessment: Moderate/High Risk (score >= 2) Caprini Risk Assessment Model: Point Value = 1 Point Value = 2 Point Value = 3 Point Value = 5 Age 41-60 Minor surgery BMI > 25 kg/m2 Swollen legs Varicose veins or History of unexplained or recurrent spontaneous Oral contraceptives or hormone replacement Sepsis (< 1 month) Serious lung disease, including pneumonia (< 1 month) Abnormal pulmonary function Acute myocardial infarction Congestive heart failure (< 1 month) History of inflammatory bowel disease Medical patient at bed rest Age 61-74 Arthroscopic surgery Major open surgery (> 45 min) Laparoscopic surgery (> 45 min) Malignancy Confined to bed (> 72 hours) Immobilizing plaster cast Central venous access Age >= 75 History of VTE Family history of VTE Factor V Leiden Prothrombin [id number] Lupus anticoagulant Anticardiolipin antibodies Elevated serum homocysteine Heparin-induced thrombocytopenia Other congenital or acquired thrombophilia Stroke (< 1 month) Elective arthroplasty Hip, pelvis, or leg fracture Acute spinal cord injury (< 1 month) Prophylaxis Regimen: Total Risk Factor Score Risk Level Prophylaxis Regimen 0-1 Low Early ambulation 2 Moderate Order ONE of the following: *Sequential Compression Device (SCD) *Heparin 5000 units SQ BID 3-4 Higher Order ONE of the following medications: *Heparin 5000 units SQ TID *Enoxaparin/Lovenox 40 mg SQ daily (WT < 150 kg, CrCl > 30 mL/min) *Enoxaparin/Lovenox 30 mg SQ daily (WT < 150 kg, CrCl > 10-29 mL/min) *Enoxaparin/Lovenox 30 mg SQ BID (WT < 150 kg, CrCl > 30 mL/min) AND/OR *Sequential Compression Device (SCD) 5 or more Highest Order ONE of the following medications: *Heparin 5000 units SQ TID (Preferred with Epidurals) *Enoxaparin/Lovenox 40 mg SQ daily (WT < 150 kg, CrCl > 30 mL/min) *Enoxaparin/Lovenox 30 mg SQ daily (WT < 150 kg, CrCl > 10-29 mL/min) *Enoxaparin/Lovenox 30 mg SQ BID (WT < 150 kg, CrCl > 30 mL/min) AND *Sequential Compression Device (SCD) Assessment and Plan - Plan Shortness of breath Patient responded to treatment for COPD though he has no personal history of COPD Pulmonary embolism ruled out by negative pulmonary angiogram in the ER Patient is using oxygen but currently not dyspneic Continue to follow on telemetry Right lower quadrant abdominal pain Onset was after hospitalization, radiation leftward Bilateral renal calculi with nonobstructing pattern noted on CT, largest on right side Given ongoing pain will get repeat image, renal, ureter, bladder ultrasound Check guaiac stool, if positive hold heparin Recheck urinalysis Diarrhea Patient had diarrhea prior to arrival Stool softeners caused diarrhea today Stool sent for C. difficile toxin DVT prophylaxis Heparin
[2017-12-31] MEDS: Heparin - SQ 10,000 UNITS/ML Vial SQ SCH ×2 (03:40→15:39)
[2017-12-31] MEDS: MethylPREDNISolone Sod Succinate Inj 125 MG/2 ML Vial IV.PUSH SCH ×4 (03:41→20:34)
[2017-12-31 05:03] LABS: Eos % (Auto) 0.2 % (0.0-4.0); Hematocrit 46.6 % (39.0-51.0); Hemoglobin 15.5 gm/dL (13.0-17.0); Lymph # (Auto) 0.4 th/mm3 (1.0-4.8); Lymph % (Auto) 2.8 % (9.0-44.0); Mean Corpuscular HGB Conc 33.4 % (32.0-36.0); Mean Corpuscular Hemoglobin 30.5 pg (27.0-34.0); Mean Corpuscular Volume 91.3 fL (80.0-100.0); Mean Platelet Volume 7.9 fL (7.0-11.0); Mono # (Auto) 0.9 th/mm3 (0.0-0.9); Mono % (Auto) 5.6 % (0.0-8.0); Neut # (Auto) 14.1 th/mm3 (1.8-7.7); Neut % (Auto) 91.4 % (16.0-70.0); Platelet Count 210 th/mm3 (150-450); Red Cell Distribution Width 13.9 % (11.6-17.2); White Blood Count 15.4 th/mm3 (4.0-11.0)
[2017-12-31 05:09] LABS: Potassium 3.8 meq/L (3.5-5.1)
[2017-12-31 05:12] LABS: Carbon Dioxide 27.5 meq/L (21.0-32.0)
--- NOTE | 2017-12-31 09:15 | US ---
EXAM DATE: 12/31/2017 9:09 AM EDT AGE/SEX: 82 years / Male INDICATIONS: Increasing right flank pain. Bilateral renal calculi seen on CT. CLINICAL DATA: This is the patient's initial encounter. Patient reports that signs and symptoms have been present for 2 days and indicates a pain score of 5/10. MEDICAL/SURGICAL HISTORY: Arthritis. Osteoporosis. GERD. Pulmonary embolism. HTN. . Bilateral cataract extraction with lens implants. Pilonidal cyst removal. COMPARISON: No prior exams available for comparison. MEASUREMENTS: Right Kidney:__10.3 x 5.5 x 5.3 cm Left Kidney:__10.9 x 4.4 x 5.5 cm FINDINGS: Right Kidney: The right kidney is normal in size and shape with mild cortical thinning. There is a 1 x 0.7 cm calculus in the lower pole lower pole with no evidence of hydronephrosis or mass. Left Kidney: The left kidney is normal in size and shape with mild cortical thinning. There is a 1.3 x 1.3 x 0.9 cm calculus in the lower pole and a 8 x 6 x 5 mm calculus in the upper pole. There is no hydronephrosis or mass. Bladder: Decompressed. Not well evaluated. Other: None. CONCLUSION: 1. Bilateral nonobstructing renal stones again visualized with no hydronephrosis. Electronically signed by: Glenn Berry MD 12/31/2017 9:13 AM EDT
[2017-12-31] MEDS: Pantoprazole Inj 40 MG Vial IV.PUSH SCH ×2 (09:53→20:32)
[2017-12-31] MEDS: Senna/Docusate Sodium 8.6/50 MG Tablet PO SCH ×2 (09:56→20:32)
--- NOTE | 2017-12-31 14:06 | P.PN ---
Subjective Interval history: Patient complains of ongoing right lower quadrant pain. This morning with a small amount of breakfast he experienced fairly severe epigastric pain and stopped eating. He was admitted for shortness of breath which has become a secondary issue. Physical Exam Vital signs: Vital Signs 12/30/17 16:00 12/30/17 18:00 12/30/17 20:00 Temperature 98.4 F 97.8 F Pulse Rate 90 102 H 96 H Respiratory Rate 28 H 20 Blood Pressure 132/64 139/69 Pulse Oximetry 97 95 12/30/17 20:28 12/30/17 20:49 12/31/17 00:00 Temperature 98.2 F Pulse Rate 90 122 H Respiratory Rate 16 20 Blood Pressure 140/98 H Pulse Oximetry 95 95 94 L 12/31/17 04:00 12/31/17 07:21 12/31/17 07:38 Temperature 98 F Pulse Rate 108 H 108 H Respiratory Rate 24 24 Blood Pressure 113/71 145/80 H Pulse Oximetry 94 L 96 93 L 12/31/17 08:00 12/31/17 08:24 12/31/17 09:00 Temperature 98.6 F Pulse Rate 110 H 118 H Respiratory Rate 17 25 H Blood Pressure 113/71 Pulse Oximetry 94 L 91 L 12/31/17 09:19 12/31/17 10:00 12/31/17 11:00 Temperature Pulse Rate 112 H 98 H 90 Respiratory Rate 16 18 18 Blood Pressure 113/71 119/75 125/71 Pulse Oximetry 94 L 93 L 90 L 12/31/17 11:08 12/31/17 12:00 12/31/17 13:00 Temperature Pulse Rate 96 H 86 90 Respiratory Rate 15 22 18 Blood Pressure 119/72 119/59 L 128/67 Pulse Oximetry 92 L 94 L 95 Intake & Output 12/30/17 12/31/17 12/31/17 18:59 06:59 18:59 Intake Total 240 / 240 120 / 120 Output Total 250 / 250 300 / 300 Balance -10 / -10 -180 / -180 Weight 87.6 kg Intake: Oral 240 / 240 120 / 120 Output: Urine 300 / 300 Stool 250 / 250 Other: # Voids 3 # Incontinent Voids 1 Date of Last Bowel Movement 12/30/17 12/30/17 12/31/17 # Bowel Movements 3 1 Narrative: GENERAL: Alert and oriented 3, uncomfortable due to abdominal pain SKIN: Warm and dry. HEAD: Normocephalic. EYES: No scleral icterus. No injection or drainage. NECK: Supple, trachea midline. No JVD or lymphadenopathy. CARDIOVASCULAR: Regular rate and rhythm without murmurs, gallops, or rubs. RESPIRATORY: Breath sounds equal bilaterally. No accessory muscle use. GASTROINTESTINAL: Abdomen soft, moderate tenderness to palpation of right lower quadrant, no guarding, nondistended. MUSCULOSKELETAL: No cyanosis, or edema. BACK: Nontender without obvious deformity. No CVA tenderness. Results - Labs CBC & Chem 7: 12/31/17 04:18 12/31/17 04:18 Laboratory Results - last 24 hr 12/30/17 12/31/17 12/31/17 16:30 04:18 04:18 CBC w Diff Auto diff final WBC 15.4 H RBC 5.10 Hgb 15.5 Hct 46.6 MCV 91.3 MCH 30.5 MCHC 33.4 RDW 13.9 Plt Count 210 MPV 7.9 Neut % (Auto) 91.4 H Lymph % (Auto) 2.8 L [place] % (Auto) 5.6 Eos % (Auto) 0.2 Baso % (Auto) 0.0 Neut # (Auto) 14.1 H Lymph # (Auto) 0.4 L [place] # (Auto) 0.9 Eos # (Auto) 0.0 Baso # (Auto) 0.0 WBC Differential . Differential Comment . Sodium 138 Potassium 3.8 Chloride 105 Carbon Dioxide 27.5 Anion Gap 6 BUN 15 Creatinine 0.85 Estimated GFR 86 L Random Glucose 149 H Calcium 10.0 Stl C.difficile Tox PCR Negative St C. diff Tox Epid 027 Negative - Imaging Impressions Abdomen/Bladder Ultrasound 12/31/17 08:00 CONCLUSION: 1. Bilateral nonobstructing renal stones again visualized with no hydronephrosis. Assessment and Plan - Plan Shortness of breath Patient responded to treatment for COPD though he has no personal history of COPD Negative pulmonary angiogram Patient is using oxygen but currently not dyspneic Continue to follow on telemetry Abdominal pain Onset was after hospitalization, first right lower quadrant with leftward radiation, this morning epigastric pain with first bites of breakfast Bilateral renal calculi with nonobstructing pattern noted on CT, largest on right side Repeat image using ultrasound shows nonobstructing stones, this rules out nephrolithiasis as a cause for his right lower quadrant pain Screening for C. difficile was negative Gastroenterology consulted Diarrhea Patient had diarrhea prior to arrival Diarrhea recurred in hospital following stool softener Negative for C. difficile toxin DVT prophylaxis Heparin
[2017-12-31] MEDS: Sod Chloride 0.9% Inj 1,000 ML IV.CONT SCH (20:17)
--- NOTE | 2017-12-31 21:27 | P.CONGI ---
History of Present Illness Consult date: 12/31/17 Consult reason: Abdominal pain Chief complaint: SOB History of Present Illness: Patient is a pleasant 82-year-old gentleman who presented to the hospital with complaints of shortness of breath he is found to have atrial fibrillation and currently he seems to be in rapid ventricular response with a heart rate of 140- 150 apparently earlier today he had his lunch and shortly after complained of severe upper abdominal pain he was started on a proton pump inhibitor and has since had no further episodes of pain there was a brief episode of nausea but no vomiting there has been no diarrhea or constipation most of this information is obtained from his nurse the patient is pleasant sitting in his chair comfortable oriented to self and place but otherwise confused Review of Systems All other systems reviewed negative except as stated in HPI PMFSH - History History Provided By: Patient - Medical History Medical History: Medical History (Last Updated 12/30/17 @ 10:09 by Lena Dangelo RN) Arthritis Gastroesophageal reflux Heartburn History of pulmonary embolism Hypertension Osteoporosis - Surgical History Surgical History: Surgical History (Last Updated 12/30/17 @ 10:09 by Lena Dangelo RN) History of phacoemulsification of cataract of both eyes with intraocular lens implantation History of surgical removal of pilonidal cyst - Tobacco History Second Hand Smoke Exposure: No Smoking Status: Never smoker - Alcohol History How Often Do You Have a Drink Containing Alcohol: Monthly or less - Substance Use History Substance History: No History of Abuse - Travel History Recent Travel in the [facility] Within the Last 8 Weeks: No - Immunization History Tetanus Immunization: Unsure Tetanus Immunization Year if Known: 2017 Hx Influenza Vaccine This Season: Yes Medications and Allergies Active Medications: Active Medications Acetaminophen (Tylenol) 650 mg PO Q4H PRN PRN Reason: Temp > 100.4 Last Admin: 12/30/17 22:45 Dose: 650 mg Hydrocodone Bitart/Acetaminophen ([place] 7.5/325) 1 tab PO Q4H PRN PRN Reason: PAIN SCALE 4 TO 6 MODERATE Last Admin: 12/31/17 17:45 Dose: 1 tab Al Hydroxide/Mg Hydroxide (Milk Of Magnesia Liq) 30 ml PO Q12H PRN PRN Reason: Mild Constipation Last Admin: 12/30/17 12:54 Dose: 30 ml Albuterol (Duoneb Neb (Kristine)) 1 ampul NEB Q6HR WHILE AWAKE NEB KRISTINE Last Admin: 12/31/17 20:23 Dose: 1 ampul Albuterol (Duoneb Neb (Prn)) 1 ampul NEB Q2HR NEB PRN PRN Reason: SHORTNESS OF BREATH/WHEEZING Bisacodyl (Dulcolax Supp) 10 mg RECTAL DAILY PRN PRN Reason: SEVERE CONSITIPATION Heparin Sodium (Porcine) (Heparin Inj) 5,000 units SQ Q12H [facility] Last Admin: 12/31/17 15:39 Dose: 5,000 units Sodium Chloride (Ns Inj) 1,000 mls @ 84 mls/hr IV.CONT .[id number] [facility] Last Admin: 12/31/17 20:17 Dose: 84 mls/hr Lactulose (Lactulose Liq) 30 ml PO DAILY PRN PRN Reason: SEVERE CONSITIPATION Methylprednisolone Sodium Succinate (Solumedrol Inj) 60 mg IV.PUSH Q6H [facility] Last Admin: 12/31/17 20:34 Dose: 60 mg Ondansetron HCl (Zofran Inj) 4 mg IV.PUSH Q6H PRN PRN Reason: NAUSEA OR VOMITING Last Admin: 12/31/17 17:51 Dose: 4 mg Pantoprazole Sodium (Protonix Inj) 40 mg IV.PUSH Q12HR [facility] Last Admin: 12/31/17 20:32 Dose: 40 mg Senna/Docusate Sodium (Zo-Colace) 1 tab PO BID [facility] Last Admin: 12/31/17 20:32 Dose: 1 tab Sennosides (Senokot) 17.2 mg PO Q12H PRN PRN Reason: Moderate Constipation Sodium Chloride (Ns Flush) 2 ml IV.FLUSH BID [facility] Last Admin: 12/31/17 20:37 Dose: Not Given Sodium Chloride (Ns Flush) 2 ml IV.FLUSH PRN PRN PRN Reason: FLUSH AFTER USING IV ACCESS Last Admin: 12/30/17 02:24 Dose: 2 ml Temazepam (Restoril) 15 mg PO HS PRN PRN Reason: INSOMNIA Last Admin: 12/30/17 23:56 Dose: 15 mg Allergies Allergy/AdvReac Type Severity Reaction Status Date / Time No Known Allergies Allergy Verified 12/30/17 01:31 Home Medications Medication Instructions Recorded Confirmed Type amlodipine 5 mg PO DAILY 12/08/17 12/30/17 History gabapentin 300 mg PO TID 12/08/17 12/30/17 History hydrocodone-acetaminophen 1 tab PO Q4-6H PRN 12/08/17 12/30/17 History oxybutynin chloride 5 mg PO TID PRN 12/08/17 12/30/17 History trazodone 100 mg PO HS 12/08/17 12/30/17 History furosemide 20 mg PO DAILY 12/30/17 12/30/17 History omeprazole 20 mg PO DAILY 12/30/17 12/30/17 History tamsulosin 0.4 mg PO DAILY 12/30/17 12/30/17 History Exam Vital signs: Vital Signs 12/31/17 00:00 12/31/17 04:00 12/31/17 07:21 Temperature 98.2 F 98 F Pulse Rate 122 H 108 H Respiratory Rate 20 24 Blood Pressure 140/98 H 113/71 Pulse Oximetry 94 L 94 L 96 12/31/17 07:38 12/31/17 08:00 12/31/17 08:24 Temperature 98.6 F Pulse Rate 108 H 88 110 H Respiratory Rate 24 17 Blood Pressure 145/80 H Pulse Oximetry 93 L 91 L 12/31/17 09:00 12/31/17 09:19 12/31/17 10:00 Temperature Pulse Rate 118 H 112 H 98 H Respiratory Rate 25 H 16 18 Blood Pressure 113/71 113/71 119/75 Pulse Oximetry 91 L 94 L 93 L 12/31/17 11:00 12/31/17 11:08 12/31/17 12:00 Temperature Pulse Rate 90 96 H 90 Respiratory Rate 18 15 22 Blood Pressure 125/71 119/72 119/59 L Pulse Oximetry 90 L 92 L 94 L 12/31/17 13:00 12/31/17 14:00 12/31/17 15:00 Temperature Pulse Rate 90 80 88 Respiratory Rate 18 29 H 18 Blood Pressure 128/67 132/76 138/72 Pulse Oximetry 95 91 L 91 L 12/31/17 16:00 12/31/17 17:00 12/31/17 18:00 Temperature 98.4 F Pulse Rate 94 H 82 102 H Respiratory Rate 21 20 Blood Pressure 126/60 144/72 H Pulse Oximetry 93 L 97 88 L 12/31/17 18:08 12/31/17 18:09 12/31/17 19:00 Temperature 98.6 F Pulse Rate 102 H 78 Respiratory Rate 39 H 18 Blood Pressure 132/69 108/70 Pulse Oximetry 92 L 92 L 12/31/17 20:00 12/31/17 20:23 Temperature Pulse Rate 121 H 91 H Respiratory Rate 16 Blood Pressure Pulse Oximetry 92 L 95 Intake & Output 12/31/17 12/31/17 01/01/18 06:59 18:59 06:59 Intake Total 120 / 120 600 / 600 Output Total 300 / 300 Balance -180 / -180 600 / 600 Weight 87.6 kg Intake: Oral 120 / 120 600 / 600 Output: Urine 300 / 300 Other: # Voids 3 # Incontinent Voids 1 Date of Last Bowel Movement 12/30/17 12/30/17 # Bowel Movements 1 0 - Constitutional no acute distress - Routine HEENT Exam Head: Present: normocephalic, atraumatic Eye: Present: EOMI - Routine Neck Exam Present: supple - Routine Respiratory Exam Present: CTA bilaterally - Routine Cardiovascular Exam Present: tachycardia, irregularly irregular - Routine Abdominal Exam Present: soft, normoactive bowel sounds. Absent: tenderness, distended - Routine Extremities Exam Absent: cyanosis, clubbing, edema - Routine Neurological Exam Present: alert. Absent: oriented X3 Results - Labs CBC & Chem 7: 12/31/17 04:18 12/31/17 04:18 Labs: Laboratory Results - last 24 hr 12/30/17 12/31/17 12/31/17 16:30 04:18 04:18 CBC w Diff Auto diff final WBC 15.4 H RBC 5.10 Hgb 15.5 Hct 46.6 MCV 91.3 MCH 30.5 MCHC 33.4 RDW 13.9 Plt Count 210 MPV 7.9 Neut % (Auto) 91.4 H Lymph % (Auto) 2.8 L Woods % (Auto) 5.6 Eos % (Auto) 0.2 Baso % (Auto) 0.0 Neut # (Auto) 14.1 H Lymph # (Auto) 0.4 L Woods # (Auto) 0.9 Eos # (Auto) 0.0 Baso # (Auto) 0.0 WBC Differential . Differential Comment . Sodium 138 Potassium 3.8 Chloride 105 Carbon Dioxide 27.5 Anion Gap 6 BUN 15 Creatinine 0.85 Estimated GFR 86 L Random Glucose 149 H Calcium 10.0 Stl C.difficile Tox PCR Negative St C. diff Tox Epid 027 Negative - Imaging Impressions Abdomen/Bladder Ultrasound 12/31/17 08:00 CONCLUSION: 1. Bilateral nonobstructing renal stones again visualized with no hydronephrosis. Assessment and Plan - Plan Shortness of breath, atrial fibrillation currently in rapid ventricular response Earlier episode of upper abdominal tenderness which has since resolved It sounds to me like most likely had some sort of spasm and resolved quickly Currently the patient is not stable for endoscopy which can be done even on outpatient basis In the meanwhile I agree with current supportive care we will continue with PPI and monitor clinically Further recommendations shall depend on his hospital course
[2017-12-31] MEDS ORDERED: Metoprolol Inj 5 MG/5 ML Vial IV.PUSH ONE (23:30)
[2018-01-01] MEDS: Heparin - SQ 10,000 UNITS/ML Vial SQ SCH (02:35)
[2018-01-01] MEDS: MethylPREDNISolone Sod Succinate Inj 125 MG/2 ML Vial IV.PUSH SCH ×3 (02:35→16:25)
[2018-01-01 05:52] LABS: Hematocrit 41.8 % (39.0-51.0); Hemoglobin 13.7 gm/dL (13.0-17.0); Mean Corpuscular HGB Conc 32.8 % (32.0-36.0); Mean Corpuscular Hemoglobin 30.3 pg (27.0-34.0); Mean Corpuscular Volume 92.4 fL (80.0-100.0); Mean Platelet Volume 7.6 fL (7.0-11.0); Platelet Count 176 th/mm3 (150-450); Red Blood Count 4.53 mil/mm3 (4.50-5.90); Red Cell Distribution Width 13.8 % (11.6-17.2); White Blood Count 7.9 th/mm3 (4.0-11.0)
[2018-01-01 06:04] LABS: Potassium 4.2 meq/L (3.5-5.1)
[2018-01-01 06:07] LABS: Calcium 9.7 mg/dL (8.5-10.1); Carbon Dioxide 28.6 meq/L (21.0-32.0)
[2018-01-01 06:21] LABS: Thyroid Stimulating Hormone 0.166 uIU/mL (0.358-3.740)
[2018-01-01] MEDS: Pantoprazole Inj 40 MG Vial IV.PUSH SCH ×2 (08:18→21:35)
[2018-01-01] MEDS: Sod Chloride 0.9% Inj 1,000 ML IV.CONT SCH ×2 (08:19→21:37)
[2018-01-01] MEDS: Senna/Docusate Sodium 8.6/50 MG Tablet PO SCH ×2 (08:20→21:35)
[2018-01-01] MEDS: dilTIAZem 60 MG Tablet PO SCH ×3 (11:45→21:35)
[2018-01-01] MEDS: Gabapentin 300 MG Capsule PO SCH ×2 (11:45→16:58)
[2018-01-01] MEDS: Furosemide 20 MG Tablet PO SCH (11:45)
--- NOTE | 2018-01-01 11:48 | P.PNIM ---
Subjective Interval history: Patient seen and evaluated in follow-up for atrial fibrillation of unknown duration with rapid ventricular response Heart rates in the 130s although it improved with the metoprolol overnight. His blood pressure did drop considerably. Patient is sleeping and appears comfortable. Continue telemetry. Care plan discussed with patient and [employer]ER Physical Exam Vital signs: Vital Signs 12/31/17 12:00 12/31/17 13:00 12/31/17 14:00 Temperature Pulse Rate 90 90 80 Respiratory Rate 22 18 29 H Blood Pressure 119/59 L 128/67 132/76 Pulse Oximetry 94 L 95 91 L 12/31/17 15:00 12/31/17 16:00 12/31/17 17:00 Temperature 98.4 F Pulse Rate 88 94 H 82 Respiratory Rate 18 21 20 Blood Pressure 138/72 126/60 144/72 H Pulse Oximetry 91 L 93 L 97 12/31/17 18:00 12/31/17 18:08 12/31/17 18:09 Temperature Pulse Rate 102 H 102 H Respiratory Rate 39 H Blood Pressure 132/69 Pulse Oximetry 88 L 92 L 12/31/17 19:00 12/31/17 20:00 12/31/17 20:15 Temperature 98.6 F Pulse Rate 80 121 H 82 Respiratory Rate 16 32 H Blood Pressure 108/70 Pulse Oximetry 91 L 92 L 12/31/17 20:23 12/31/17 20:57 12/31/17 21:00 Temperature Pulse Rate 91 H 125 H 130 H Respiratory Rate 16 21 Blood Pressure Pulse Oximetry 95 96 12/31/17 22:00 12/31/17 23:03 01/01/18 00:00 Temperature Pulse Rate 144 H 128 H 106 H Respiratory Rate 14 28 H 16 Blood Pressure 128/92 H Pulse Oximetry 94 L 92 L 95 01/01/18 00:57 01/01/18 01:00 01/01/18 02:00 Temperature 98.3 F Pulse Rate 112 H 82 74 Respiratory Rate 18 15 12 Blood Pressure 128/94 H Pulse Oximetry 94 L 95 95 01/01/18 03:00 01/01/18 04:00 01/01/18 04:30 Temperature 97.7 F Pulse Rate 76 80 82 Respiratory Rate 15 14 28 H Blood Pressure 97/56 L 117/59 L 117/59 L Pulse Oximetry 93 L 94 L 01/01/18 05:00 01/01/18 07:29 01/01/18 08:00 Temperature Pulse Rate 80 66 142 H Respiratory Rate 16 16 Blood Pressure Pulse Oximetry 95 96 97 01/01/18 09:00 01/01/18 10:00 01/01/18 11:00 Temperature 97.1 F L Pulse Rate 124 H 146 H Respiratory Rate 16 16 Blood Pressure 110/93 H Pulse Oximetry 92 L Intake & Output 12/31/17 01/01/18 01/01/18 18:59 06:59 18:59 Intake Total 600 / 600 620 / 620 1000 / 1000 Output Total 500 / 500 Balance 600 / 600 120 / 120 1000 / 1000 Weight 86.9 kg Intake: IV 1000 / 1000 NS Inj 1,000 ML @ 84 mls/hr IV. 1000 / 1000 CONT .[id number] [facility] Rx#: [id number] Oral 600 / 600 620 / 620 Output: Urine 500 / 500 Other: Date of Last Bowel Movement 12/30/17 01/01/18 # Bowel Movements 0 0 Narrative: GENERAL: Patient calm resting and without complaints SKIN: Warm and dry. No rashes or ecchymotic injuries EYES: Pupils equal and round. No scleral icterus. No injection or drainage. ENT: External ear exam normal. No acute nasal bleeding or discharge. Mucous membranes pink and moist. CARDIOVASCULAR: A. fib with rapid ventricular response. No murmurs gallops or rubs appreciated RESPIRATORY: Good air flow and effort without accessory muscle use. Clear to auscultation. Breath sounds equal bilaterally. GASTROINTESTINAL: Abdomen soft, non-tender, nondistended. Hepatic and splenic margins not palpable. MUSCULOSKELETAL: Extremities without clubbing, cyanosis, or edema. No obvious deformities. NEUROLOGICAL: Awake and alert. No obvious cranial nerve deficits. Motor grossly within normal limits. Five out of 5 muscle strength in the arms and legs. Normal speech. Results - Labs CBC & Chem 7: 01/01/18 05:20 01/01/18 05:20 Laboratory Results - last 24 hr 01/01/18 01/01/18 05:20 05:20 WBC 7.9 RBC 4.53 Hgb 13.7 Hct 41.8 MCV 92.4 MCH 30.3 MCHC 32.8 RDW 13.8 Plt Count 176 MPV 7.6 Sodium 139 Potassium 4.2 Chloride 105 Carbon Dioxide 28.6 Anion Gap 5 BUN 21 H Creatinine 0.84 Estimated GFR 87 L Random Glucose 131 H Calcium 9.7 TSH 0.166 L Assessment and Plan - Assessment (1) Atrial fibrillation with RVR Code(s): I48.91 - Unspecified atrial fibrillation Status: Acute Plan: he appears to have minimal chest pain but is hypotensive with a rate in the 130s and is short of breath We will evaluate for cardiology management Add Cardizem p.o. (instead of home amlodipine), cont telem may need cardioversion if unable to manage medically, however it is unknown the duration of the A. fib Continue Lovenox q12 (patient appears not to be on any anticoagulation and has a history of pulmonary embolism) obtain echo (none at [facility] per their office), last one is 2015 and shows right ventricular failure with elevated pulmonary pressures TSH is suppressed, follow-up studies pending was on Eliquis for PE (2) Abdominal pain Code(s): R10.9 - Unspecified abdominal pain Status: Acute Plan: Diarrhea improved, C. difficile negative CT abdomen pelvis unremarkable for acute intra-abdominal findings GI consult appreciated PPI and bowel regimen Encourage ambulation - Plan Discharge Plannin-3 days pending cardiac improvement
[2018-01-01] MEDS ORDERED: Heparin - SQ 10,000 UNITS/ML Vial SQ SCH (14:00)
[2018-01-01 14:25] LABS: Triiodothyronine (T3) Free 2.41 pg/mL (2.18-3.98)
--- NOTE | 2018-01-01 17:19 | P.PNGI ---
Subjective Interval history: Patient sitting in a chair comfortable denies any pain and tolerated intake well Physical Exam Vital signs: Vital Signs 12/31/17 18:00 12/31/17 18:08 12/31/17 18:09 Temperature Pulse Rate 102 H 102 H Respiratory Rate 39 H Blood Pressure 132/69 Pulse Oximetry 88 L 92 L 12/31/17 19:00 12/31/17 20:00 12/31/17 20:15 Temperature 98.6 F Pulse Rate 80 121 H 82 Respiratory Rate 16 32 H Blood Pressure 108/70 Pulse Oximetry 91 L 92 L 12/31/17 20:23 12/31/17 20:57 12/31/17 21:00 Temperature Pulse Rate 91 H 125 H 130 H Respiratory Rate 16 21 Blood Pressure Pulse Oximetry 95 96 12/31/17 22:00 12/31/17 23:03 01/01/18 00:00 Temperature Pulse Rate 144 H 128 H 106 H Respiratory Rate 14 28 H 16 Blood Pressure 128/92 H Pulse Oximetry 94 L 92 L 95 01/01/18 00:57 01/01/18 01:00 01/01/18 02:00 Temperature 98.3 F Pulse Rate 112 H 82 74 Respiratory Rate 18 15 12 Blood Pressure 128/94 H Pulse Oximetry 94 L 95 95 01/01/18 03:00 01/01/18 04:00 01/01/18 04:30 Temperature 97.7 F Pulse Rate 76 80 82 Respiratory Rate 15 14 28 H Blood Pressure 97/56 L 117/59 L 117/59 L Pulse Oximetry 93 L 94 L 01/01/18 05:00 01/01/18 06:00 01/01/18 07:00 Temperature Pulse Rate 80 78 76 Respiratory Rate 16 14 15 Blood Pressure 119/68 Pulse Oximetry 95 95 95 01/01/18 07:29 01/01/18 08:00 01/01/18 08:18 Temperature Pulse Rate 66 136 H 148 H Respiratory Rate 16 20 17 Blood Pressure 110/93 H Pulse Oximetry 96 94 L 94 L 01/01/18 09:00 01/01/18 09:20 01/01/18 10:00 Temperature 97.1 F L Pulse Rate 150 H 154 H 146 H Respiratory Rate 21 23 13 Blood Pressure 110/93 H 112/73 Pulse Oximetry 91 L 92 L 91 L 01/01/18 10:06 01/01/18 11:00 07/26/18 11:06 Temperature Pulse Rate 144 H 130 H 126 H Respiratory Rate 14 13 13 Blood Pressure 102/61 102/63 Pulse Oximetry 91 L 92 L 92 L 01/01/18 12:00 01/01/18 12:14 01/01/18 13:12 Temperature 97.9 F Pulse Rate 136 H 114 H 70 Respiratory Rate 20 24 32 H Blood Pressure 113/56 L Pulse Oximetry 93 L 91 L 92 L 01/01/18 13:13 01/01/18 14:00 01/01/18 15:00 Temperature Pulse Rate 68 64 62 Respiratory Rate 19 15 16 Blood Pressure 114/66 Pulse Oximetry 93 L 96 97 01/01/18 16:00 01/01/18 16:01 01/01/18 17:04 Temperature Pulse Rate 72 66 71 Respiratory Rate 20 Blood Pressure Pulse Oximetry 96 Intake & Output 12/31/17 01/01/18 01/01/18 18:59 06:59 18:59 Intake Total 600 / 600 620 / 620 1000 / 1000 Output Total 500 / 500 550 / 550 Balance 600 / 600 120 / 120 450 / 450 Weight 86.9 kg Intake: IV 1000 / 1000 NS Inj 1,000 ML @ 84 mls/hr IV. 1000 / 1000 CONT .[id number] [facility] Rx#: [id number] Oral 600 / 600 620 / 620 Output: Urine 500 / 500 550 / 550 Other: Date of Last Bowel Movement 12/30/17 01/01/18 # Bowel Movements 0 0 - Constitutional no acute distress - Routine HEENT Exam Head: Present: normocephalic Eye: Present: EOMI - Routine Neck Exam Present: supple - Routine Respiratory Exam Present: CTA bilaterally - Routine Cardiovascular Exam Present: RRR - Routine Abdominal Exam Present: soft, normoactive bowel sounds - Routine Extremities Exam Absent: cyanosis, clubbing, edema - Routine Skin Exam Present: dry, warm Results - Labs CBC & Chem 7: 01/01/18 05:20 01/01/18 05:20 Laboratory Results - last 24 hr 01/01/18 01/01/18 01/01/18 05:20 05:20 05:20 WBC 7.9 RBC 4.53 Hgb 13.7 Hct 41.8 MCV 92.4 MCH 30.3 MCHC 32.8 RDW 13.8 Plt Count 176 MPV 7.6 Sodium 139 Potassium 4.2 Chloride 105 Carbon Dioxide 28.6 Anion Gap 5 BUN 21 H Creatinine 0.84 Estimated GFR 87 L Random Glucose 131 H Calcium 9.7 TSH 0.166 L Thyroxine (T4) 10.0 Free T3 2.41 Assessment and Plan - Plan Shortness of breath, atrial fibrillation currently controlled No further episodes of abdominal pain Tolerating intake without any other GI symptoms Continue with current supportive care Patient follow-up with GI post discharge Not much to add at this point in time we will sign off
[2018-01-01] MEDS: Enoxaparin Inj 100 MG/ML Syringe SQ SCH (21:36)
[2018-01-02] MEDS: Temazepam 15 MG Capsule PO PRN ×2 (00:07→23:31)
[2018-01-02] MEDS: MethylPREDNISolone Sod Succinate Inj 125 MG/2 ML Vial IV.PUSH SCH ×3 (01:07→08:46)
--- NOTE | 2018-01-02 06:39 | MB ---
cc: Johnathan Greenfield MD, Edward MD DATE: 01/02/2018 I have reviewed outside and prior records. The patient is an 82-year-old gentleman who I am seeing for atrial fibrillation. The patient has no history of atrial fibrillation. He presented with slowly increasing dyspnea on exertion, perhaps over a month, but especially upon admission. He noted no other cardiopulmonary symptomatology. EKG has shown atrial fibrillation with rapid response, but he has subsequently converted to sinus rhythm. PAST MEDICAL HISTORY: 1. Hypertension. 2. 2016 bilateral extensive pulmonary emboli and bilateral DVT. Echocardiogram showed normal LV function and mild tricuspid regurgitation. 3. Chronic venous insufficiency. 4. Monoclonal gammopathy. 5. Neuropathy. 6. Renal calculus. 7. Diverticula of intestine. 8. Esophageal reflux. 9. Obesity. 10. Osteoarthritis. 11. Benign prostatic hypertrophy. 12. Cataract surgery. 13. Cholecystectomy. 14. Pilonidal cyst. 15. Possible TURP. ALLERGIES: NONE. SOCIAL HISTORY: He is and does not smoke or drink. FAMILY HISTORY: Noncontributory. REVIEW OF SYSTEMS: Remarkable for the above, with occasional joint pains and memory issues. Rhythm shows sinus rhythm/sinus bradycardia with premature atrial contractions. X-RAYS: Chest CT angiogram shows bibasilar airspace disease, right greater than left, either atelectasis or infiltrate, and no pulmonary emboli. Abdominal CT reveals renal calculi. LABORATORY DATA: CBC has been normal with a transiently elevated white count. D-dimer elevated, potassium 4.2, creatinine 0.84, glucose 131. TSH low, but with normal T4 and T3. PT and PTT were not done as a baseline. PHYSICAL EXAMINATION: GENERAL: He is alert and oriented x 3, but is forgetful. VITAL SIGNS: Afebrile. Vital signs are stable. HEENT: There are no xanthelasma, and oropharyngeal mucosa is normal. He is obese. CHEST: Decreased breath sounds, but clear. NECK: JVD normal. HEART: S1, S2. No murmurs or gallops. ABDOMEN: Obese but benign. EXTREMITIES: Show no cyanosis, clubbing, or edema. PULSES: Carotids without bruits. Radials 1-2+. Femorals not felt through the diaper. EXTREMITIES: With no edema, but with stasis changes. Pedal pulses 1 plus. He is not ambulated. PROBLEMS: 1. Atrial fibrillation with rapid response. 2. History of hypertension. 3. Possible sleep apnea - the patient is overweight and does snore. 4. Possible pneumonia, although this could well be atelectasis. 5. Monoclonal gammopathy. 6. History of deep venous thrombosis and pulmonary embolus. RECOMMENDATIONS: 1. Medications have been reviewed. 2. The patient should be committed to long-term anticoagulation. I would recommend Eliquis 5 mg daily instead of his Lovenox. Baseline clotting parameters have not been obtained, and I will leave this to the primary service, including switching him over. 3. Continue diltiazem. He can be switched to a single or double day dose of sustained release at the same total daily dose. 4. The patient probably needs a sleep apnea evaluation. 5. Echocardiogram is pending. I will not follow but be available if needed and leave further recommendations to the primary service. I would like to see the patient as an outpatient in 2-3 weeks. All questions were answered. MD RILEY Ly/BAILEE , 06:09 AM , 06:17 AM
[2018-01-02 06:43] LABS: Prothrombin Time 10.4 sec (9.8-11.6)
[2018-01-02] MEDS: Furosemide 20 MG Tablet PO SCH (08:45)
[2018-01-02] MEDS: Gabapentin 300 MG Capsule PO SCH ×4 (08:46→19:28)
[2018-01-02] MEDS: Senna/Docusate Sodium 8.6/50 MG Tablet PO SCH ×2 (08:46→21:37)
[2018-01-02] MEDS: Enoxaparin Inj 100 MG/ML Syringe SQ SCH (08:46)
[2018-01-02] MEDS: Pantoprazole Inj 40 MG Vial IV.PUSH SCH (08:46)
[2018-01-02] MEDS: Sod Chloride 0.9% Inj 1,000 ML IV.CONT SCH (08:48)
[2018-01-02] MEDS: dilTIAZem 60 MG Tablet PO SCH (08:53)
--- NOTE | 2018-01-02 10:27 | P.PNIM ---
Subjective Interval history: Patient seen today in follow-up for atrial fibrillation which appears to be improved on Cardizem Blood pressure remained stable. Cardiology consult appreciated. Care plan discussed with patient and [employer]. Patient still complaining of increased shortness of breath Physical Exam Vital signs: Vital Signs 01/01/18 11:00 01/01/18 11:06 01/01/18 12:00 Temperature Pulse Rate 130 H 126 H 136 H Respiratory Rate 13 13 20 Blood Pressure 102/63 Pulse Oximetry 92 L 92 L 93 L 01/01/18 12:14 01/01/18 13:12 01/01/18 13:13 Temperature 97.9 F Pulse Rate 114 H 70 68 Respiratory Rate 24 32 H 19 Blood Pressure 113/56 L 114/66 Pulse Oximetry 91 L 92 L 93 L 01/01/18 14:00 01/01/18 15:00 01/01/18 16:00 Temperature Pulse Rate 64 62 72 Respiratory Rate 15 16 Blood Pressure Pulse Oximetry 96 97 96 01/01/18 16:01 01/01/18 17:04 01/01/18 19:00 Temperature 98.3 F Pulse Rate 66 71 66 Respiratory Rate 20 20 Blood Pressure 115/62 Pulse Oximetry 94 L 01/01/18 19:45 01/01/18 20:00 01/01/18 23:00 Temperature Pulse Rate 67 95 H Respiratory Rate 17 Blood Pressure Pulse Oximetry 94 L 94 L 01/02/18 00:00 01/02/18 03:00 01/02/18 04:00 Temperature Pulse Rate 83 Respiratory Rate 14 Blood Pressure Pulse Oximetry 95 96 95 01/02/18 07:15 01/02/18 08:00 Temperature 97.2 F L Pulse Rate 63 Respiratory Rate Blood Pressure Pulse Oximetry 93 L Intake & Output 01/01/18 01/02/18 01/02/18 18:59 06:59 18:59 Intake Total 1000 / 1000 1620 / 1620 1000 / 1000 Output Total 550 / 550 700 / 700 Balance 450 / 450 920 / 920 1000 / 1000 Weight 90.7 kg Intake: IV 1000 / 1000 1000 / 1000 1000 / 1000 NS Inj 1,000 ML @ 84 mls/hr IV. 1000 / 1000 1000 / 1000 1000 / 1000 CONT .[id number] [facility] Rx#: [id number] Oral 620 / 620 Output: Urine 550 / 550 700 / 700 Other: Date of Last Bowel Movement 01/01/18 01/01/18 Narrative: GENERAL: Patient calm resting and without complaints SKIN: Warm and dry. No rashes or ecchymotic injuries EYES: Pupils equal and round. No scleral icterus. No injection or drainage. ENT: External ear exam normal. No acute nasal bleeding or discharge. Mucous membranes pink and moist. CARDIOVASCULAR: A. fib with rate controlled. No murmurs gallops or rubs appreciated RESPIRATORY: Good air flow and effort without accessory muscle use. Cough with deep inspiration GASTROINTESTINAL: Abdomen soft, non-tender, nondistended. Hepatic and splenic margins not palpable. MUSCULOSKELETAL: Extremities without clubbing, cyanosis, or edema. No obvious deformities. NEUROLOGICAL: Awake and alert. No obvious cranial nerve deficits. Motor grossly within normal limits. Five out of 5 muscle strength in the arms and legs. Normal speech. Results - Labs CBC & Chem 7: 01/01/18 05:20 01/01/18 05:20 Laboratory Results - last 24 hr 01/01/18 01/02/18 05:20 06:21 PT 10.4 INR 1.0 Thyroxine (T4) 10.0 Free T3 2.41 Assessment and Plan - Assessment (1) Atrial fibrillation with RVR Code(s): I48.91 - Unspecified atrial fibrillation Status: Acute Plan: Likely will resume Eliquis Follow-up echocardiogram Cardiology eval appreciated Continue telemetry Cardizem CD TSH but other thyroid studies are normal (2) Abdominal pain Code(s): R10.9 - Unspecified abdominal pain Status: Acute Plan: Resolved Continue ambulation (3) SOB (shortness of breath) Code(s): R06.02 - Shortness of breath Status: Acute Plan: May be due to atrial fibrillation may be early infiltrate on imaging wean steroids, cont lasix and add doxy Follow-up echocardiogram and cxr - Plan Discharge Plannin-2 days pending respiratory improvement
[2018-01-02] MEDS ORDERED: dilTIAZem CD 120 MG Capsule PO ONE ×2 (11:00→20:00)
--- NOTE | 2018-01-02 11:07 | XR ---
EXAM DATE: 01/02/2018 10:58 AM EDT AGE/SEX: 82 years / Male INDICATIONS: . Short of breath CLINICAL DATA: This is the patient's subsequent encounter. Patient reports that signs and symptoms h ave been present for 4 - 6 days and indicates a pain score of 0/10. MEDICAL/SURGICAL HISTORY: . Arthritis. Osteoporosis. GERD. Pulmonary embolism. HTN. None. COMPARISON: [facility], CTA PULMONARY W CONTRAST W 3D, 12/30/2017. . FINDINGS: AP and lateral views of the chest were obtained. Both views remains mid inspiratory with crowding of the lung vasculature. Patchy airspace disease remains at the lung bases without significant change. T here is no distinct effusion. The heart size is at the upper limits of normal. The bony thorax is sta ble and intact with degenerative change in right shoulder. CONCLUSION: Inspiratory exam with patchy airspace disease at the lung bases without significant change. Electronically signed by: Glenn Berry MD 01/02/2018 11:05 AM EDT
[2018-01-02] MEDS: predniSONE 20 MG Tablet PO SCH ×2 (11:45→21:37)
--- NOTE | 2018-01-02 12:24 | ECG ---
Date Performed: 01/01/2018 Time Performed: 09:09:05 PTAGE: 82 years EKG: ATRIAL FIBRILLATION WITH RAPID VENTRICULAR RESPONSE WITH ABERRANT CONDUCTION OR VENTRICULAR PREMATURE COMPLEXES NONSPECIFIC ST & T-WAVE ABNORMALITY ABNORMAL RHYTHM ECG PREVIOUS TRACING : 12/30/2017 00.26 Since the previous tracing, no significant change noted DOCTOR: Mo Rodgers Interpretating Date/Time 01/02/2018 12:22:58
--- NOTE | 2018-01-02 12:29 | ECHRPT ---
Indication: ATRIAL FIB/FLUTTER CONCLUSIONS Normal left ventricular size. Wall thickness is normal. The left ventricular systolic function is normal with an estimated ejection fraction in the range of 55-60%. [id number] mitral valve regurgitation. Aortic valve sclerosis is present. Trace aortic valve regurgitation. There is trace tricuspid valve regurgitation. BP: / HR: Rhythm: Sinus, Atrial fibrillation MEASUREMENTS (Male / Female) Normal Values Technical Quality:Very technically difficult study 2D ECHO LVOT Diameter 2.4 cm Aortic Root Diameter 3.6 cm M-MODE AV Cusp Separation MM 2.1 cm DOPPLER AV Peak Velocity 160.0 cm/s AV Peak Gradient 10.2 mmHg AV Mean Gradient 6.0 mmHg AV Velocity Time Integral 29.0 cm LVOT Peak Velocity 73.7 cm/s LVOT Peak Gradient 2.2 mmHg LVOT Velocity Time Integral 11.1 cm AV Area Cont Eq vti 1.7 cm AV Area Cont Eq pk 2.1 cm Mitral E Point Velocity 72.6 cm/s Mitral A Point Velocity 63.7 cm/s Mitral E to A Ratio 1.1 PV Peak Velocity 62.4 cm/s PV Peak Gradient 1.6 mmHg FINDINGS LEFT VENTRICLE Normal left ventricular size. Wall thickness is normal. The left ventricular systolic function is normal with an estimated ejection fraction in the range of 55-60%. RIGHT VENTRICLE Normal right ventricular size and systolic function. LEFT ATRIUM The left atrial size is normal. RIGHT ATRIUM The right atrial size is normal. ATRIAL SEPTUM The interatrial septum not well visualized. AORTA The aortic root and proximal ascending aorta are normal in size on limited imaging. MITRAL VALVE Vrthy-[id number] mitral valve regurgitation. AORTIC VALVE Aortic valve sclerosis is present. Trace aortic valve regurgitation. TRICUSPID VALVE There is trace tricuspid valve regurgitation. PULMONARY VALVE No pulmonary valve regurgitation or stenosis. VESSELS The inferior vena cava was not well visualized. PERICARDIUM No pericardial effusion. Momo Draper MD, FACC (Electronically Signed) Final Date:02 January 2018 12:28
[2018-01-03] MEDS: predniSONE 20 MG Tablet PO SCH (09:07)
[2018-01-03] MEDS: Furosemide 20 MG Tablet PO SCH (09:07)
[2018-01-03] MEDS: Gabapentin 300 MG Capsule PO SCH ×2 (09:07→13:30)
[2018-01-03] MEDS: Senna/Docusate Sodium 8.6/50 MG Tablet PO SCH (09:07)
--- NOTE | 2018-01-03 10:21 | P.DS ---
Date of admission: 12/30/17 02:28 Primary care physician: Joe Palafox MD Brief History from admission: This is an 82-year-old male who presented to the ER overnight with shortness of breath that required oxygen use and admission. Standard therapy for COPD seemed to resolve his shortness of breath as this morning he is breathing comfortably though still using oxygen. Pulmonary angiogram performed in the ER showed no evidence for pulmonary embolism, though it did show bibasilar atelectasis. On her visit he reports right lower quadrant pain. DS: Diagnosis - Discharge Diagnosis (1) Atrial fibrillation with RVR Status: Acute (2) Abdominal pain Status: Resolved (3) SOB (shortness of breath) Status: Acute DS: Medications - Discharge Medications Prescriptions: apixaban [Eliquis] 5 mg PO BID #60 tab diltiazem HCl 120 mg PO DAILY #30 cap doxycycline hyclate 100 mg PO Q12HR #4 tab DS: Summary Hospital Course: Patient is 82-year-old gentleman came in with abdominal discomfort which appeared to resolve once his atrial fibrillation which was rapid ventricular response was treated. He did well with Cardizem have chronic respiratory failure and required O2 at discharge. Patient was seen by cardiology services. Echocardiogram does show preserved ejection fraction and likely nonvalvular A. fib. Patient did resume Eliquis which she had taken prior for pulmonary embolism. - Time Spent with Patient Total time spent providing and/or coordinating discharge services: - Quality: VTE Deep Vein Thrombosis/Pulmonary Embolism Present on Admission: Yes Exam Vital signs: Vital Signs 01/02/18 11:02 01/02/18 12:00 01/02/18 12:11 Temperature 97.2 F L Pulse Rate 64 67 Respiratory Rate Blood Pressure Pulse Oximetry 95 96 01/02/18 13:53 01/02/18 14:00 01/02/18 15:00 Temperature Pulse Rate 55 L 69 Respiratory Rate 13 16 Blood Pressure Pulse Oximetry 96 01/02/18 16:00 01/02/18 18:00 01/02/18 19:00 Temperature 98.5 F Pulse Rate 62 91 H Respiratory Rate 22 Blood Pressure Pulse Oximetry 95 01/02/18 19:15 01/02/18 20:00 01/02/18 22:00 Temperature 98.1 F Pulse Rate 67 84 82 Respiratory Rate 22 23 Blood Pressure 124/67 Pulse Oximetry 94 L 96 01/02/18 23:00 01/03/18 00:00 01/03/18 00:01 Temperature 98.2 F Pulse Rate 82 74 66 Respiratory Rate 15 15 Blood Pressure 116/74 114/75 Pulse Oximetry 97 97 96 01/03/18 02:00 01/03/18 04:00 01/03/18 06:00 Temperature 97.4 F L Pulse Rate 75 60 67 Respiratory Rate 23 Blood Pressure 109/59 L Pulse Oximetry 96 01/03/18 07:32 01/03/18 07:34 Temperature Pulse Rate 64 Respiratory Rate 12 Blood Pressure Pulse Oximetry 98 Intake & Output 01/02/18 01/03/18 01/03/18 18:59 06:59 18:59 Intake Total 1480 / 1480 Output Total 1502 / 1502 Balance - / Weight 96.4 kg Intake: IV 1000 / 1000 NS Inj 1,000 ML @ 84 mls/hr IV. 1000 / 1000 CONT .[id number] Rx#: [id number] Oral 480 / 480 Output: Urine 1500 / 1500 Stool 2 / 2 Other: # Voids 4 Date of Last Bowel Movement 01/02/18 12/31/17 Narrative: GENERAL: Patient calm resting and without complaints SKIN: Warm and dry. No rashes or ecchymotic injuries EYES: Pupils equal and round. No scleral icterus. No injection or drainage. ENT: External ear exam normal. No acute nasal bleeding or discharge. Mucous membranes pink and moist. CARDIOVASCULAR: Atrial fibrillation. No murmurs gallops or rubs appreciated RESPIRATORY: Good air flow and effort without accessory muscle use. Clear to auscultation. Breath sounds equal bilaterally. GASTROINTESTINAL: Abdomen soft, non-tender, nondistended. Hepatic and splenic margins not palpable. MUSCULOSKELETAL: Extremities without clubbing, cyanosis, or edema. No obvious deformities. NEUROLOGICAL: Awake and alert. No obvious cranial nerve deficits. Motor grossly within normal limits. Five out of 5 muscle strength in the arms and legs. Normal speech. Results Procedures completed during hospitalization: None - Impressions ITS Impressions Abdomen/Pelvis CT 12/30/17 02:22 CONCLUSION: 1. Bibasilar airspace disease. Diagnostic considerations include atelectasis or mild infiltrates, particularly on the right. 2. Bilateral nonobstructing renal calculi with the largest in the right lower pole measuring 1.5 cm in diameter. 3. Otherwise, no acute intraperitoneal or pelvic process to explain current clinical symptoms Chest CTA 12/30/17 02:22 CONCLUSION: 1. Persistent bibasilar airspace disease, right worse than left. Diagnostic considerations include atelectasis versus mild infiltrate. These were present previously with some improvement on the left. 2. No pulmonary embolus. Thoracic aorta is normal in caliber throughout its length Abdomen/Bladder Ultrasound 12/31/17 08:00 CONCLUSION: 1. Bilateral nonobstructing renal stones again visualized with no hydronephrosis. Chest X-Ray 01/02/18 00:00 CONCLUSION: Inspiratory exam with patchy airspace disease at the lung bases without significant change. Discharge Plan - Discharge Disposition Patient Disposition: /Home Health Service - Discharge Condition Condition: Stable - Discharge Order Discharge Orders: Discharge Order (Routine); Ordered 01/03/18 Ordered By: Helga Deleon - Discharge Details Anticipated Discharge Date: 01/03/18 - Physicians Team Primary Care Provider: Joe Palafox Attending Provider: Helga Deleon Other Providers: Naa Jacome ; Judson Ga MD ; Kristian Mccord MD
[2018-01-03] MEDS ORDERED: dilTIAZem CD 120 MG Capsule PO SCH (11:00)
--- NOTE | 2018-01-03 12:33 | P.DCO ---
- Physical Therapy Order: Evaluate and treat - Speech Therapy Order: To improve: Speech and communication skills - Home Health Nursing Order: Medical education, Signs/symptoms of disease process, Oxygen administration education - Offc Spec Order: To evaluate: Living conditions/environment - Certification I have seen patient Austen Melgar on 01/03/18. My clinical findings support the need for the requested home health care services because: Patient has SOB I certify that my clinical findings support that this patient is homebound because: Unsteady gait/balance
== END 2018-01-03 16:04 | disposition home health service (06) ==
LOC: PHICU 00:11 → PHEDA 00:11 → PHED 00:11 → PHICU 07:15
PROVIDERS: ADMIT Hospitalist; ATTEND Hospitalist
DX: D47.2 Monoclonal gammopathy; I11.0 Hypertensive heart disease with heart failure; I48.91 Unspecified atrial fibrillation; E66.3 Overweight; M19.90 Unspecified osteoarthritis, unspecified site; I07.1 Rheumatic tricuspid insufficiency; Z86.711 Personal history of pulmonary embolism; K21.9 Gastro-esophageal reflux disease without esophagitis; R10.31 Right lower quadrant pain; Z86.718 Personal history of other venous thrombosis and embolism; J96.10 Chronic respiratory failure, unspecified whether with hypoxia or hypercapnia; R06.02 Shortness of breath; I35.0 Nonrheumatic aortic (valve) stenosis; M81.0 Age-related osteoporosis without current pathological fracture; I50.810 Right heart failure, unspecified; N20.0 Calculus of kidney; J98.11 Atelectasis; I87.2 Venous insufficiency (chronic) (peripheral); R19.7 Diarrhea, unspecified; N40.0 Benign prostatic hyperplasia without lower urinary tract symptoms

== ENCOUNTER 2018-01-12 18:03 | Observation (INO) ==
[2018-01-12] MEDS ORDERED: Sodium Chlor 0.9% Inj 250 ML IV.SIG ONE (19:21)
--- NOTE | 2018-01-12 19:21 | ED ---
HPI General Chief complaint: Chest Pain Stated complaint: CHEST PAIN Time Seen by Provider: 01/12/18 19:16 Source: patient History of Present Illness HPI narrative: The patient is an 82 year old male who presents to the [facility] emergency department with a history of History of nausea and chest pain that began this afternoon. He has had associated shortness of breath. He denies having any vomiting with the nausea. He denies any diarrhea. He reports that he believes that he moved his bowels last earlier today. He denies having any blood in his stool or black or tarry stools. He has had lower abdominal pain in the center. The chest pain and abdominal pain began at the same time. The pain in both locations is a throbbing sensation. He denies any history of cardiac disease, however after reviewing the electronic medical record it is noted that the patient has a history of atrial fibrillation with RVR. The patient's history is limited due to memory problems. He is oriented to person, place, time, and situation. On review of systems otherwise, the patient denies having any known recent fevers, cough or congestion, neck pain, urinary symptoms, or neurologic symptoms. Related Data Home Medications Medication Instructions Recorded Confirmed gabapentin 300 mg PO TID 12/08/17 01/12/18 hydrocodone-acetaminophen 1 tab PO Q4-6H PRN 12/08/17 01/12/18 oxybutynin chloride 5 mg PO TID PRN 12/08/17 01/12/18 trazodone 100 mg PO HS 12/08/17 01/12/18 furosemide 20 mg PO DAILY 12/30/17 01/12/18 omeprazole 20 mg PO DAILY 12/30/17 01/12/18 tamsulosin 0.4 mg PO DAILY 12/30/17 01/12/18 Previous Rx's Medication Instructions Recorded apixaban [Eliquis] 5 mg PO BID #60 tab 01/03/18 diltiazem HCl 120 mg PO DAILY #30 cap 01/03/18 doxycycline hyclate 100 mg PO Q12HR #4 tab 01/03/18 Allergies Allergy/AdvReac Type Severity Reaction Status Date / Time No Known Allergies Allergy Verified 12/30/17 01:31 Review of Systems ROS Unobtainable All other systems reviewed negative except as stated in HPI [facility] Medical History Medical History Atrial fibrillation (Acute) Arthritis (Acute) Gastroesophageal reflux (Acute) Heartburn (Acute) History of pulmonary embolism (Acute) Hypertension (Acute) Osteoporosis (Acute) Surgical History Surgical History History of phacoemulsification of cataract of both eyes with intraocular lens implantation (Acute) History of surgical removal of pilonidal cyst (Acute) Social History Social History Substance History: No History of Abuse Second Hand Smoke Exposure: No Smoking Status: Never smoker How Often Do You Have a Drink Containing Alcohol: Never Recent Travel in [facility] within the Last 8 Weeks: No Recent Out of Country Travel within the Last 8 Weeks: No Immunization History Tetanus Immunization: Unsure Tetanus Immunization Year if Known: 2017 Hx Influenza Vaccine This Season: Yes Exam Const General: cooperative, no acute distress and well developed Nutritional Appearance: well nourished Orientation: alert, awake, oriented to person, oriented to place and not oriented to time HENMT Head: normocephalic and atraumatic Nose: no nasal discharge and no epistaxis Mouth: mucous membranes dry Throat: posterior oropharynx normal and uvula midline Eyes Sclera: normal sclerae Pupils: PERRL Neck Neck: no meningeal signs, trachea midline and no JVD Resp Effort & Inspection: no use of accessory muscles Auscultation: clear to auscultation bilaterally Cardio Rate: regular rate (Heart rate in the 90s) Rhythm: abnormal rhythm Heart Sounds: no murmurs GI Inspection: non-distended Palpation: soft, no hepatosplenomegaly and tender in the epigastrum (Tender to palpation in the midepigastric area.); not in the LLQ, not in the RLQ, not in the LUQ, not in the RUQ, not at McBurney's point and Shelton's sign negative Auscultation: normal bowel sounds Back/Spine/Pelvis Back: no CVA tenderness Skin General: dry skin (warm) Neuro General: alert and oriented (person, place, situation, but not time.) Cranial Nerves: other (No facial asymmetry noted.) Speech: speech normal Motor: strength 5/5 throughout and no movement abnormalities noted Extrem General: normal to inspection (No calf tenderness on palpation. 2+ pulses in all 4 extremities.), no clubbing, no cyanosis and no edema Psych Affect: normal affect Course Initial Documented Vital Signs Temperature 97.7 F 01/12/18 18:20 Pulse Rate 95 H 01/12/18 18:20 Respiratory Rate 24 01/12/18 18:20 Blood Pressure 138/88 01/12/18 18:20 Pulse Oximetry 98 01/12/18 18:20 Last Documented Vital Signs Temperature 97.7 F 01/12/18 18:20 Pulse Rate 110 H 01/12/18 19:21 Respiratory Rate 17 01/12/18 19:21 Blood Pressure 139/60 01/12/18 19:21 Pulse Oximetry 98 01/12/18 19:21 Medical Decision Making MDM Narrative Medical decision making narrative: During the course of the patient's emergency department visit, the patient's history, examination, and differential diagnosis were reviewed with the patient. The patient was placed on a potline monitor with oximetry and frequent blood pressure monitoring. The patient had IV access obtained and blood work sent for analysis. A diagnostic evaluation was started regarding the patient's chest pain, shortness of breath, central abdominal pain, and nausea. The patient was initially provided aspirin 81 mg as he is anticoagulated on Eliquis, nitroglycerin 1 inch the chest wall, Zofran for nausea, Protonix 40 mg IV. The patient's electronic medical record was reviewed. The patient was recently admitted to the hospital at the end of December related to new onset atrial fibrillation with RVR, seen byDr. Greenfield. The patient was continued on Eliquis for anticoagulation related to the atrial fibrillation. The patient was also seen by gastroenterology related to midepigastric abdominal pain. Patient was started on a proton pump inhibitor in the hospital which seemed to improve his symptoms. It appears that the patient was discharged home on omeprazole. The patient has similar symptoms at this time and was restarted on Protonix IV. CT scan of the abdomen and pelvis was done today. Ordered to be done today. The patient's diagnostic evaluation is remarkable for a white count of 7.5, platelets 128, neutrophils 76.7, hemoglobin 14.2. PT 11, PTT 21, chemistry is remarkable for a total protein of 6.2, CPK 30, total bilirubin 1.4, glucose 72, albumin 2.8, lipase within normal limits, lactic acid within normal limits at 1.2, BNP is 16. A chest x-ray showed no acute abnormality. The patient CT scan shows no acute findings in the abdomen or pelvis, prominent bilateral lower pole nonobstructing renal stones, prominent but nondistended loops of jejunum that are similar in appearance to the CT scan done at the end of December. As the patient is primarily complaining of chest pain and shortness of breath associated with nausea without vomiting and I see no evidence of the patient having a stress test done at this facility, the patient will be admitted to the chest pain center for rule out serial cardiac enzyme protocol followed by stress testing. The patient is on diltiazem for rate control at his senior care. The patient will be given a dose in the emergency department. The patient's results were discussed with the patient, including the plan of care. I explained that further testing and/ or monitoring is indicated based on the patient's history, examination, and/ or laboratory findings. Therefore, I recommended admission for additional evaluation. The patient expressed understanding and was agreeable with this plan. The patient was admitted to the hospital in stable condition and sent to a bed under the care of the [facility]. Differential Diagnosis Differential Diagnosis: Acute coronary syndrome, versus ischemic bowel, versus congestive heart failure exacerbation, versus COPD exacerbation, versus pneumonia, versus pulmonary embolism Medical Records Medical records reviewed: Yes I reviewed the patient's medical records. Lab Data Lab results reviewed: Yes I reviewed the patient's lab results. Result diagrams: 01/12/18 19:30 01/12/18 19:30 Lab Results 01/12/18 01/12/18 01/12/18 Range/Units 19:30 19:30 19:30 WBC 7.5 (4.0-11.0) th/mm3 RBC 4.72 (4.50-5.90) mil/mm3 Hgb 14.2 (13.0-17.0) gm/dL Hct 42.6 (39.0-51.0) % MCV 90.3 (80.0-100.0) fL MCH 30.1 (27.0-34.0) pg MCHC 33.3 (32.0-36.0) % RDW 14.2 (11.6-17.2) % Plt Count 128 L (150-450) th/mm3 MPV 8.3 (7.0-11.0) fL Neut % (Auto) 76.7 H (16.0-70.0) % Lymph % (Auto) 14.1 (9.0-44.0) % Burt % (Auto) 8.6 H (0.0-8.0) % Eos % (Auto) 0.2 (0.0-4.0) % Baso % (Auto) 0.4 (0.0-2.0) % Neut # (Auto) 5.8 (1.8-7.7) th/mm3 Lymph # (Auto) 1.1 (1.0-4.8) th/mm3 Burt # (Auto) 0.6 (0.0-0.9) th/mm3 Eos # (Auto) 0.0 (0.0-0.4) th/mm3 Baso # (Auto) 0.0 (0.0-0.2) th/mm3 WBC Differential . Differential Comment Auto diff final PT (9.8-11.6) sec INR Ratio APTT (24.3-30.1) sec Sodium 140 (136-145) meq/L Potassium 3.6 (3.5-5.1) meq/L Chloride 107 (98-107) meq/L Carbon Dioxide 22.5 (21.0-32.0) meq/L Anion Gap 11 (5-15) meq/L BUN 16 (7-18) mg/dL Creatinine 0.67 (0.60-1.30) mg/dL Estimated GFR Greater than 89 (>89) mL/min Random Glucose 72 L (74-106) mg/dL Lactic Acid (0.4-2.0) mmol/L Calcium 9.6 (8.5-10.1) mg/dL Magnesium 1.6 (1.5-2.5) mg/dL Total Bilirubin 1.4 H (0.2-1.0) mg/dL AST 21 (15-37) U/L ALT 36 (12-78) U/L Alkaline Phosphatase 83 (45-117) U/L Total Creatine Kinase 30 L (39-308) U/L Troponin I 0.02 (0.02-0.05) ng/mL B-Natriuretic Peptide 72 (0-100) pg/mL Total Protein 6.2 L (6.4-8.2) g/dL Albumin 2.8 L (3.4-5.0) g/dL Lipase 152 (73-393) U/L 01/12/18 01/12/18 Range/Units 19:30 20:35 WBC (4.0-11.0) th/mm3 RBC (4.50-5.90) mil/mm3 Hgb (13.0-17.0) gm/dL Hct (39.0-51.0) % MCV (80.0-100.0) fL MCH (27.0-34.0) pg MCHC (32.0-36.0) % RDW (11.6-17.2) % Plt Count (150-450) th/mm3 MPV (7.0-11.0) fL Neut % (Auto) (16.0-70.0) % Lymph % (Auto) (9.0-44.0) % Burt % (Auto) (0.0-8.0) % Eos % (Auto) (0.0-4.0) % Baso % (Auto) (0.0-2.0) % Neut # (Auto) (1.8-7.7) th/mm3 Lymph # (Auto) (1.0-4.8) th/mm3 Burt # (Auto) (0.0-0.9) th/mm3 Eos # (Auto) (0.0-0.4) th/mm3 Baso # (Auto) (0.0-0.2) th/mm3 WBC Differential Differential Comment PT 11.0 (9.8-11.6) sec INR 1.1 Ratio APTT 21.0 L (24.3-30.1) sec Sodium (136-145) meq/L Potassium (3.5-5.1) meq/L Chloride (98-107) meq/L Carbon Dioxide (21.0-32.0) meq/L Anion Gap (5-15) meq/L BUN (7-18) mg/dL Creatinine (0.60-1.30) mg/dL Estimated GFR (>89) mL/min Random Glucose (74-106) mg/dL Lactic Acid 1.2 (0.4-2.0) mmol/L Calcium (8.5-10.1) mg/dL Magnesium (1.5-2.5) mg/dL Total Bilirubin (0.2-1.0) mg/dL AST (15-37) U/L ALT (12-78) U/L Alkaline Phosphatase (45-117) U/L Total Creatine Kinase (39-308) U/L Troponin I (0.02-0.05) ng/mL B-Natriuretic Peptide (0-100) pg/mL Total Protein (6.4-8.2) g/dL Albumin (3.4-5.0) g/dL Lipase (73-393) U/L Imaging Data Radiologist's impression: Chest X-Ray 01/12/18 19:21 CONCLUSION: No acute findings in the lungs. Abdomen/Pelvis CT 01/12/18 19:22 CONCLUSION: 1. No acute findings in the abdomen or pelvis. 2. Prominent bilateral lower pole nonobstructing renal stones. 3. Prominent but nondistended loops of jejunum. ECG Data Attestation: I personally reviewed and interpreted this ECG as follows: Interpretation: The patient had a EKG done on arrival that shows atrial fibrillation with a heart rate of 116, QRS duration 109 ms, QTC [address] segment elevation is noted. Discharge Plan Discharge Disposition Patient Disposition: 30 Still Patient Discharge Details Diagnosis: Chest pain, rule out acute myocardial infarction, Atrial fibrillation Physicians Team ED Provider: Elaine Altamirano Primary Care Provider: Joe Palafox Rxs /Orders / Referrals /Forms Prescriptions: No Action hydrocodone-acetaminophen 10-325 mg Tablet 1 tab PO Q4-6H PRN (Reason: Pain) RF: 0 trazodone 100 mg Tablet 100 mg PO HS RF: 0 gabapentin 300 mg Capsule 300 mg PO TID RF: 0 oxybutynin chloride 5 mg Tablet 5 mg PO TID PRN (Reason: Urinary Retention) RF: 0 tamsulosin 0.4 mg Capsule,Extended Release 24hr 0.4 mg PO DAILY RF: 0 furosemide 20 mg Tablet 20 mg PO DAILY RF: 0 omeprazole 20 mg PO DAILY RF: 0 diltiazem HCl 120 mg Capsule,Extended Release 24hr 120 mg PO DAILY Qty: 30 RF: 0 doxycycline hyclate 100 mg Tablet 100 mg PO Q12HR Qty: 4 RF: 0 apixaban [Eliquis] 5 mg Tablet 5 mg PO BID Qty: 60 RF: 0 Discharge Instructions Patient Printed Instructions: Chest Pain (ED) Status ED Status: With Doctor
--- NOTE | 2018-01-12 19:41 | XR ---
EXAM DATE: 01/12/2018 7:33 PM EDT AGE/SEX: 82 years / Male INDICATIONS: Chest pain CLINICAL DATA: This is the patient's initial encounter. Patient reports that signs and symptoms have been present for 1 day and indicates a pain score of 0/10. MEDICAL/SURGICAL HISTORY: . Arthritis. Osteoporosis. GERD. Pulmonary embolism. HTN. None. COMPARISON: [facility], CHEST 2V PA&LAT, 01/02/2018. [facility], CHEST 1V SINGLE AP, 12/13/2017. [facility], CHEST SIN GLE AP, 12/01/2015. . FINDINGS: No focal infiltrates seen. There is a chronic opacity left costophrenic angle similar to prior chest x-rays dating back to 2016. The heart is normal in size. Stable advanced degenerative changes in the right shoulder. CONCLUSION: No acute findings in the lungs. Electronically signed by: Rohan Cole MD 01/12/2018 7:40 PM EDT
[2018-01-12 20:27] LABS: Albumin 2.8 g/dL (3.4-5.0); Anion Gap 11 meq/L (5-15); Aspartate Aminotransferase 21 U/L (15-37); Blood Urea Nitrogen 16 mg/dL (7-18); Calcium 9.6 mg/dL (8.5-10.1); Carbon Dioxide 22.5 meq/L (21.0-32.0); Chloride 107 meq/L (98-107); Glomerular Filtration Rate Greater Than 89 mL/min (>89); Glucose,Random 72 mg/dL (74-106); Lipase 152 U/L (73-393); Magnesium 1.6 mg/dL (1.5-2.5); Potassium 3.6 meq/L (3.5-5.1); Sodium 140 meq/L (136-145)
[2018-01-12 20:28] LABS: Alanine Aminotransferase 36 U/L (12-78)
[2018-01-12 20:33] LABS: Alkaline Phosphatase 83 U/L (45-117); Total Protein 6.2 g/dL (6.4-8.2); Troponin I 0.02 ng/mL (0.02-0.05)
[2018-01-12 20:37] LABS: Creatine Kinase 30 U/L (39-308)
[2018-01-12 20:46] LABS: Baso % (Auto) 0.4 % (0.0-2.0); Eos % (Auto) 0.2 % (0.0-4.0); Hematocrit 42.6 % (39.0-51.0); Hemoglobin 14.2 gm/dL (13.0-17.0); Lymph # (Auto) 1.1 th/mm3 (1.0-4.8); Lymph % (Auto) 14.1 % (9.0-44.0); Mean Corpuscular HGB Conc 33.3 % (32.0-36.0); Mean Corpuscular Hemoglobin 30.1 pg (27.0-34.0); Mean Corpuscular Volume 90.3 fL (80.0-100.0); Mean Platelet Volume 8.3 fL (7.0-11.0); Mono # (Auto) 0.6 th/mm3 (0.0-0.9); Mono % (Auto) 8.6 % (0.0-8.0); Neut # (Auto) 5.8 th/mm3 (1.8-7.7); Neut % (Auto) 76.7 % (16.0-70.0); Platelet Count 128 th/mm3 (150-450); Red Blood Count 4.72 mil/mm3 (4.50-5.90); Red Cell Distribution Width 14.2 % (11.6-17.2); White Blood Count 7.5 th/mm3 (4.0-11.0)
[2018-01-12 21:08] LABS: INR 1.1 Ratio
[2018-01-12] MEDS ORDERED: Pantoprazole Inj 40 MG Vial IV.PUSH ONE (22:09)
[2018-01-12] MEDS ORDERED: dilTIAZem CD 120 MG Capsule PO ONE (22:19)
--- NOTE | 2018-01-12 22:43 | CT ---
EXAM DATE: 01/12/2018 10:11 PM EDT AGE/SEX: 82 years / Male INDICATIONS: Abdominal pain. CLINICAL DATA: This is the patient's initial encounter. Patient reports that signs and symptoms have been present for 1 day and indicates a pain score of 8/10. MEDICAL/SURGICAL HISTORY: Gastroesophageal reflux disease. Hypertension. PE None. ORAL CONTRAST: No oral contrast ingested. RADIATION DOSE: 14.19 CTDI (mGy) COMPARISON: [facility], CT ABDOMEN & PELVIS W CONTRAST, 12/30/2017. . TECHNIQUE: Multiple contiguous axial images were obtained through the abdomen and pelvis following b olus infusion of 81 ml Omnipaque 350 (iohexol) nonionic water-soluble contrast as a single exam dos e. No oral contrast ingested. Using automated exposure control and adjustment of the mA and/or kV ac cording to patient size, radiation dose was kept as low as reasonably achievable to obtain optimal di agnostic quality images. DICOM format image data is available electronically for review and comparis on. FINDINGS: Lower Lungs: Bilateral lower lung scarring and atelectasis, similar to prior. Liver: The liver has a homogeneous density without space-occupying lesion. There is no dilation of th e biliary tree. Cholecystectomy. Spleen: Homogeneous density without enlargement. Pancreas: Unremarkable without mass or calcification. Kidneys: Stable bilateral lower pole calcified partially staghorn stones measuring 1.5 cm on the lef t side and 0.9 cm the right side, stable from prior. No evidence of hydronephrosis. No calcifications along the course of either ureter. Adrenal Glands: Unremarkable. Aorta: The aorta and proximal iliac vessels are grossly unremarkable without aneurysmal dilation. Bowel/Mesentery: No dilated loops of small or large bowel. Mildly prominent loops of jejunum are sim ilar to prior CT measuring up to 2.5 cm. No evidence of free fluid. Abdominal Wall: Intact. Retroperitoneum: No evidence of adenopathy in the retrocrural, para-aortic, or deep pelvic regions. Bladder: Contours are smooth. Reproductive Organs: No abnormal masses or calcifications seen. Inguinal: The inguinal region is unremarkable without evidence of adenopathy. Bony Structures: Discogenic and degenerative changes related to left lumbar scoliosis and bilateral pars defects at L5-S1, similar to prior exam. CONCLUSION: 1. No acute findings in the abdomen or pelvis. 2. Prominent bilateral lower pole nonobstructing renal stones. 3. Prominent but nondistended loops of jejunum. Electronically signed by: Rohan Cole MD 01/12/2018 10:42 PM EDT
[2018-01-13 00:02] LABS: Troponin I 0.02 ng/mL (0.02-0.05)
[2018-01-13 03:34] LABS: Troponin I 0.03 ng/mL (0.02-0.05)
--- NOTE | 2018-01-13 09:32 | P.HPCA ---
History of Present Illness Primary Care Physician: Joe Palafox MD Chief Complaint: Chest pain History of Present Illness: This is a 82-year-old male the presents to ED plaint of developing a discomfort in his chest yesterday. Is left-sided chest. Last about 10 minutes but recurred again. He was short of breath. Denies nausea or diaphoresis. Denies history of CAD. States he has had age fibrillation and takes Eliquis for this. Cannot recall the name of his record retrieval specialist. Cannot recall recent stress testing. Denies chest discomfort at this time. - Diagnosis (1) Chest pain (2) Paroxysmal atrial fibrillation Review of Systems General: Patient denies fevers, chills, and recent travel. HEENT: Patient denies headache, sore throat, difficulty swallowing. Cardiovascular: Has the chest discomfort as mentioned above. Denies sensation of heart beating rapidly or irregularly. No syncope. Respiratory: He was short of breath. Denies inspirational chest discomfort. Denies coughing wheezing or hemoptysis. GI: Patient denies nausea, vomiting, diarrhea, abdominal pain, bloody stools. Musculoskeletal: Patient denies joint pain or edema. Denies calf pain or edema. Neurovascular: Patient denies numbness, tingling, weakness in extremities. Denies headache. Endocrine: Denies polyuria and polydipsia. Hematologic: Denies easy bruising. Skin: Denies rash or itching. PMFSH - History History Provided By: Patient - Medical History Medical History: Medical History (Last Reviewed 01/12/18 @ 22:23 by Elaine Altamirano MD) Atrial fibrillation Arthritis Gastroesophageal reflux Heartburn History of pulmonary embolism Hypertension Osteoporosis - Surgical History Surgical History: Surgical History (Last Reviewed 01/12/18 @ 22:23 by Elaine Altamirano MD) History of phacoemulsification of cataract of both eyes with intraocular lens implantation History of surgical removal of pilonidal cyst - Tobacco History Second Hand Smoke Exposure: No Smoking Status: Never smoker - Alcohol History How Often Do You Have a Drink Containing Alcohol: Monthly or less - Substance Use History Substance History: No History of Abuse - Travel History Recent Travel in the [place] Within the Last 8 Weeks: No Recent Travel Out of the Country Within the Last 8 Weeks: No - Immunization History Tetanus Immunization: Unsure Tetanus Immunization Year if Known: 2017 Hx Influenza Vaccine This Season: Yes Medications and Allergies Active Medications: Active Medications Aspirin (Aspirin Chew) 81 mg PO DAILY DUGLAS Pantoprazole Sodium (Protonix) 40 mg PO DAILY DUGLAS Sodium Chloride (Ns Flush) 2 ml IV.FLUSH UNSCH PRN PRN Reason: FLUSH AFTER USING IV ACCESS Sodium Chloride (Ns Flush) 2 ml IV.FLUSH BID DUGLAS Sodium Chloride (Ns Flush) 2 ml IV.FLUSH PRN PRN PRN Reason: FLUSH AFTER USING IV ACCESS Allergies Allergy/AdvReac Type Severity Reaction Status Date / Time No Known Allergies Allergy Verified 12/30/17 01:31 Home Medications Medication Instructions Recorded Confirmed Type gabapentin 300 mg PO TID 12/08/17 01/12/18 History hydrocodone-acetaminophen 1 tab PO Q4-6H PRN 12/08/17 01/12/18 History oxybutynin chloride 5 mg PO TID PRN 12/08/17 01/12/18 History trazodone 100 mg PO HS 12/08/17 01/12/18 History furosemide 20 mg PO DAILY 12/30/17 01/12/18 History omeprazole 20 mg PO DAILY 12/30/17 01/12/18 History tamsulosin 0.4 mg PO DAILY 12/30/17 01/12/18 History Exam Vital signs: Vital Signs 01/12/18 18:20 01/12/18 19:21 01/12/18 20:42 Temperature 97.7 F Pulse Rate 95 H 110 H Respiratory Rate 24 17 Blood Pressure 138/88 139/60 Pulse Oximetry 98 98 99 01/12/18 22:57 01/13/18 00:00 01/13/18 04:00 Temperature 98.3 F 98.1 F Pulse Rate 106 H 101 H 83 Respiratory Rate 17 16 17 Blood Pressure 146/89 H 113/62 110/59 L Pulse Oximetry 98 98 98 01/13/18 07:08 01/13/18 08:00 Temperature 98.5 F Pulse Rate 94 H 69 Respiratory Rate 16 Blood Pressure 135/67 Pulse Oximetry 96 Intake & Output 01/12/18 01/13/18 01/13/18 18:59 06:59 18:59 Intake Total 250 / 250 Balance 250 / 250 Weight 90.718 kg Intake: IV 250 / 250 NS Inj 250 ML @ Wide Open IV. 250 / 250 SIG BOLUS ONE Rx#:[id number] Narrative: GENERAL: This is a well-nourished, well-developed patient, in no apparent distress. Patient speaks in clear complete sentences. Patient is pleasant. HEENT: Head is atraumatic and normocephalic. Neck is supple without lymphadenopathy and trachea is midline. No JVD or carotid bruits. CARDIOVASCULAR: Regular rate and rhythm without murmurs, gallops, or rubs. RESPIRATORY: Clear to auscultation. Breath sounds equal bilaterally. No wheezes , rales, or rhonchi. Chest wall is nontender. No use of accessory muscles. GASTROINTESTINAL: Abdomen is nontender, nondistended. Abdomen soft. No obvious pulsatile mass or bruit. No CVA tenderness. Strong femoral pulses bilaterally. Normal bowel sounds in all quadrants. MUSCULOSKELETAL: Patient is moving upper and lower extremities freely. No calf tenderness or edema, no Homans sign. Strong pulses in upper and lower extremities. NEUROLOGICAL: Patient is alert and oriented. Cranial nerves 2-12 are grossly intact. No focal deficits and speech is clear. SKIN: No rash and turgor is normal. Results 01/12/18 19:30 01/12/18 19:30 Cardiac Enzymes 01/12/18 01/12/18 01/12/18 Range/Units 19:30 19:30 23:00 AST 21 (15-37) U/L Troponin I 0.02 0.02 (0.02-0.05) ng/mL B-Natriuretic Peptide 72 (0-100) pg/mL 01/13/18 Range/Units 02:50 AST (15-37) U/L Troponin I 0.03 (0.02-0.05) ng/mL B-Natriuretic Peptide (0-100) pg/mL Coagulation 01/12/18 01/12/18 Range/Units 19:30 20:35 PT 11.0 (9.8-11.6) sec APTT 21.0 L (24.3-30.1) sec B-Natriuretic Peptide 72 (0-100) pg/mL CBC 01/12/18 Range/Units 19:30 WBC 7.5 (4.0-11.0) th/mm3 RBC 4.72 (4.50-5.90) mil/mm3 Hgb 14.2 (13.0-17.0) gm/dL Hct 42.6 (39.0-51.0) % Plt Count 128 L (150-450) th/mm3 Neut # (Auto) 5.8 (1.8-7.7) th/mm3 Lymph # (Auto) 1.1 (1.0-4.8) th/mm3 Hitchcock # (Auto) 0.6 (0.0-0.9) th/mm3 Eos # (Auto) 0.0 (0.0-0.4) th/mm3 Baso # (Auto) 0.0 (0.0-0.2) th/mm3 Comprehensive Metabolic Panel 01/12/18 Range/Units 19:30 Sodium 140 (136-145) meq/L Potassium 3.6 (3.5-5.1) meq/L Chloride 107 (98-107) meq/L Carbon Dioxide 22.5 (21.0-32.0) meq/L BUN 16 (7-18) mg/dL Creatinine 0.67 (0.60-1.30) mg/dL Calcium 9.6 (8.5-10.1) mg/dL AST 21 (15-37) U/L ALT 36 (12-78) U/L Alkaline Phosphatase 83 (45-117) U/L Total Protein 6.2 L (6.4-8.2) g/dL Albumin 2.8 L (3.4-5.0) g/dL Intake and Output 01/12/18 01/13/18 01/13/18 22:59 06:59 14:59 Intake Total 250 / 250 Balance 250 / 250 Intake: IV 250 / 250 NS Inj 250 ML @ Wide Open IV. 250 / 250 SIG BOLUS ONE Rx#:[id number] Other: Weight 90.718 kg EKG interpretations - EKG EKG shows: sinus rhythm (EKGs are sinus rhythm without significant ST segment depression or elevation. There are PACs noted.) Caprini VTE Risk Assessment Caprini VTE Risk Assessment: Moderate/High Risk (score >= 2) Caprini Risk Assessment Model: Point Value = 1 Point Value = 2 Point Value = 3 Point Value = 5 Age 41-60 Minor surgery BMI > 25 kg/m2 Swollen legs Varicose veins or History of unexplained or recurrent spontaneous Oral contraceptives or hormone replacement Sepsis (< 1 month) Serious lung disease, including pneumonia (< 1 month) Abnormal pulmonary function Acute myocardial infarction Congestive heart failure (< 1 month) History of inflammatory bowel disease Medical patient at bed rest Age 61-74 Arthroscopic surgery Major open surgery (> 45 min) Laparoscopic surgery (> 45 min) Malignancy Confined to bed (> 72 hours) Immobilizing plaster cast Central venous access Age >= 75 History of VTE Family history of VTE Factor V Leiden Prothrombin [id number] Lupus anticoagulant Anticardiolipin antibodies Elevated serum homocysteine Heparin-induced thrombocytopenia Other congenital or acquired thrombophilia Stroke (< 1 month) Elective arthroplasty Hip, pelvis, or leg fracture Acute spinal cord injury (< 1 month) Prophylaxis Regimen: Total Risk Factor Score Risk Level Prophylaxis Regimen 0-1 Low Early ambulation 2 Moderate Order ONE of the following: *Sequential Compression Device (SCD) *Heparin 5000 units SQ BID 3-4 Higher Order ONE of the following medications: *Heparin 5000 units SQ TID *Enoxaparin/Lovenox 40 mg SQ daily (WT < 150 kg, CrCl > 30 mL/min) *Enoxaparin/Lovenox 30 mg SQ daily (WT < 150 kg, CrCl > 10-29 mL/min) *Enoxaparin/Lovenox 30 mg SQ BID (WT < 150 kg, CrCl > 30 mL/min) AND/OR *Sequential Compression Device (SCD) 5 or more Highest Order ONE of the following medications: *Heparin 5000 units SQ TID (Preferred with Epidurals) *Enoxaparin/Lovenox 40 mg SQ daily (WT < 150 kg, CrCl > 30 mL/min) *Enoxaparin/Lovenox 30 mg SQ daily (WT < 150 kg, CrCl > 10-29 mL/min) *Enoxaparin/Lovenox 30 mg SQ BID (WT < 150 kg, CrCl > 30 mL/min) AND *Sequential Compression Device (SCD) Assessment and Plan - Assessment (1) Chest pain Code(s): R07.9 - Chest pain, unspecified Status: Acute (2) Paroxysmal atrial fibrillation Code(s): I48.0 - Paroxysmal atrial fibrillation Status: Acute - Plan * Chest pain: Patient has had serial cardiac enzymes and EKGs for ruling out purposes and has been seen by Dr. Rodriguez of cardiology in the chest pain center. He will undergo a Lexiscan. He would be discharged home if the stress test is nonischemic with instructions to follow-up with PCP and record retrieval specialist. Return to ED as needed. * History of paroxysmal atrial fibrillation: Continues medications. Patient is stable at this time. He is agreeable to this plan. H&P: Quality - VTE Deep Vein Thrombosis/Pulmonary Embolism Present on Admission: No
[2018-01-13] MEDS ORDERED: Regadenoson Inj 0.4 MG/5 ML Syringe IV.PUSH ONE (09:51)
--- NOTE | 2018-01-13 11:12 | NM ---
EXAM DATE: 01/13/2018 11:03 AM EDT AGE/SEX: 82 years / Male INDICATIONS:Angina. Atrial fibrillation Mid chest pain for one day. CLINICAL DATA: This is the patient's initial encounter. Patient reports that signs and symptoms have been present for 1 day and indicates a pain score of 6/10. MEDICAL/SURGICAL HISTORY: Hypertension. Gastroesophageal reflux disease. None. COMPARISON: No prior exams available for comparison. No external comparison. DOSE: 26.9 mCi Tc 99m Myoview at rest 8.6 mCi [id number] at stress 0.4 mg Lexiscan STRESS SYMPTOMS: Shoulder pain. EJECTION FRACTION: 53 % TECHNIQUE: The patient underwent pharmacologic stress with infusion of prescribed dose. Continuous ECG tracing was monitored during stress. Gated SPECT imaging was performed after stress and conventi onal SPECT imaging was performed at rest. The examination was performed on a SPECT/CT scanner, both attenuation and non-corrected datasets were reviewed. FINDINGS: Distribution: The maximum perfused segment at stress is in the septal wall. Perfusion Study: The pattern of perfusion at stress is within normal limits. Gated Study: There are intact wall motion and wall thickening without hypokinetic or dyskinetic segm ents. The ejection fraction is calculated at 53%. RISK CATEGORY: Low (<1% Annual Motality Rate) CONCLUSION: 1. Negative examination. Electronically signed by: Dominguez Whitehead MD 01/13/2018 11:10 AM EDT
[2018-01-13] MEDS ORDERED: Gabapentin 300 MG Capsule PO SCH (13:00)
[2018-01-13] MEDS ORDERED: traZODone 100 MG Tablet PO SCH (21:00)
[2018-01-13 22:52] VITALS: BP 113/71; PULSE 87; RESP 16; TEMP 98.1; O2SAT 97
--- NOTE | 2018-01-14 08:39 | ECG ---
Date Performed: 01/13/2018 Time Performed: 02:28:11 PTAGE: 82 years EKG: SINUS TACHYCARDIA WITH FREQUENT SUPRAVENTRICULAR PREMATURE COMPLEXES MODERATE INTRAVENTRICU LAR CONDUCTION DELAY ABNORMAL RHYTHM ECG PREVIOUS TRACING : 01/12/2018 18.25 Since previous tracing, no significant change noted DOCTOR: Bennie Pak Interpretating Date/Time 01/14/2018 08:39:29
--- NOTE | 2018-01-14 08:44 | ECG ---
Date Performed: 01/12/2018 Time Performed: 23:07:44 PTAGE: 82 years EKG: Sinus rhythm WITH FREQUENT PAC'S NONSPECIFIC T-WAVE ABNORMALITY ABNORMAL RHYTHM ECG PREVIOUS TRACING : 01/12/2018 18.25 Since previous tracing, no significant change noted DOCTOR: Bennie Pak Interpretating Date/Time 01/14/2018 08:42:24
[2018-01-14] MEDS ORDERED: dilTIAZem CD 120 MG Capsule PO SCH (09:00)
[2018-01-14] MEDS ORDERED: Furosemide 20 MG Tablet PO SCH (09:00)
[2018-01-14] MEDS ORDERED: Pantoprazole Sodium 20 MG DR Tablet PO SCH (09:00)
--- NOTE | 2018-01-14 09:04 | ECG ---
Date Performed: 01/12/2018 Time Performed: 18:25:57 PTAGE: 82 years EKG: Sinus rhythm WITH FREQUENT PAC'S POSSIBLE INFERIOR MYOCARDIAL INFARCTION ABNORMAL RHYTHM ECG PREVIOUS TRACING : 01/01/2018 09.09 DOCTOR: Bennie Pak Interpretating Date/Time 01/16/2018 08:01:36
--- NOTE | 2018-01-14 09:08 | TR ---
Date Performed: 01/13/2018 Time Performed: 09:57:35 DOCTOR: Bennie Pak DRUG LIST: CLINICAL HISTORY: REASON FOR TEST: REASON FOR ENDING: OBSERVATION: CONCLUSION: COMMENTS: Lexiscan stress test was performed under standard four minute protocol. Radionuclide was injected one minute prior to ending the test. No electrocardiographic abormalities were present t o suggest ischemia. Nuclear imaging and interpretation are pending.
== END 2018-01-13 16:25 | disposition home or self-care (01) ==
LOC: NEDA 18:03 → NEPHCDU 18:03 → NEPC 18:03 → NEPHCDU 01-13 00:33
PROVIDERS: ADMIT Internal Medicine Cardiovascular Disease; ATTEND Internal Medicine Cardiovascular Disease
DX: M19.90 Unspecified osteoarthritis, unspecified site; R07.89 Other chest pain; M81.0 Age-related osteoporosis without current pathological fracture; R06.02 Shortness of breath; K21.9 Gastro-esophageal reflux disease without esophagitis; Z79.01 Long term (current) use of anticoagulants; N20.0 Calculus of kidney; I10 Essential (primary) hypertension; I48.0 Paroxysmal atrial fibrillation